=== PATIENT | male | born 1955 ===

== ENCOUNTER 2018-01-08 08:16 | Inpatient (IN) | payer SELFPAY ==
[2018-01-08 08:28] VITALS: BMI 28.1
--- NOTE | 2018-01-08 08:45 | ED PDOC ---
Arrival/HPI - General Time Seen by Provider: 01/08/18 08:38 Historian: Patient - History of Present Illness Narrative History of Present Illness (Text): 01/08/18 08:30 62 year old male, whose PMH includes 3 coronary stents and pacemaker, who presents to the emergency department complaining of chest pain asscoiated with shortness of breath since this morning. Patient reports he woke up with the pain and also complaints of swollen feet. Patient denies any fever, cough, headache, nausea, vomiting, diarrhea, abdominal pain, or other complaints. Time/Duration: Prior to Arrival Symptom Onset: Sudden Symptom Course: Unchanged Activities at Onset: Rest Context: Home Past Medical History - Provider Review Nursing Documentation Reviewed: Yes Family/Social History - Physician Review Nursing Documentation Reviewed: Yes Family/Social History: Unknown Family HX Allergies/Home Meds Allergies/Adverse Reactions: Allergies No Known Allergies Allergy (Verified 01/08/18 08:28) Home Medications: Home Meds Medication Instructions Recorded Confirmed Unobtainable 01/08/18 01/08/18 Review of Systems - Review of Systems Constitutional: absent: Fevers ENT: absent: Sinus Congestion Respiratory: SOB. absent: Cough Cardiovascular: Chest Pain Gastrointestinal: absent: Abdominal Pain Genitourinary Male: absent: Dysuria Musculoskeletal: absent: Back Pain Skin: absent: Rash Neurological: absent: Headache, Dizziness Endocrine: absent: Diaphoresis Physical Exam Vital Signs Reviewed: Yes Vital Signs Temp Pulse Pulse Resp BP BP Pulse Ox 01/08/18 11:49 81 20 101/82 97 01/08/18 11:04 95/71 L 01/08/18 08:59 79 94/71 L 01/08/18 08:40 97.6 F Appearance: Positive for: Non-Toxic, Unkept (dishevelled ) Pain Distress: None Mental Status: Positive for: Alert and Oriented X 3 - Systems Exam Head: Present: Atraumatic, Normocephalic Pupils: Present: PERRL Extroacular Muscles: Present: EOMI Conjunctiva: Present: Normal Respiratory/Chest: Present: Clear to Auscultation, Tachypneic, Other (pacemaker on left side of chest). No: Respiratory Distress, Accessory Muscle Use Cardiovascular: Present: Regular Rate and Rhythm, Normal S1, S2. No: Murmurs Abdomen: Present: Normal Bowel Sounds. No: Tenderness, Distention, Peritoneal Signs, Rebound, Guarding Neurological: Present: GCS=15, CN II-XII Intact, Speech Normal Skin: Present: Warm, Dry, Normal Color. No: Rashes Psychiatric: Present: Alert, Oriented x 3, Normal Insight, Normal Concentration Medical Decision Making ED Course and Treatment: 01/08/18 Impression: 62 year old male who appears dishevelled and is tachypneic complaining of shortness of breath and chest pain since this morning Plan: -- EKG -- Labs -- Aspirin -- Urinalysis -- Reassess and disposition Progress Notes: 01/08/18 EKG: Ordered, reviewed, and independently interpreted the EKG. Rate : BPM Rhythm : 82 NSR Interpretation : Left Clayton Deviation. Widened QRS prolonged QTC 497. No ST elevation. T-wave inversion lead I and aVL Patient denies history of CHF but has elevated BNP and cardiomegaly, and has a defibrillator. 40mg lasix ivp given for fluid overload. Will admit for further management. 01/08/18 11:[address] Garcia, hospitalist chronometer assembler, who agrees with emergency department management and will admit patient under care. - Lab Interpretations Lab Results: 01/08/18 08:44 01/08/18 08:44 Lab Results 01/08/18 08:44: Sodium 137, Potassium 4.8, Chloride 98, Carbon Dioxide 25, Anion Gap 19, BUN 55 H, Creatinine 1.8 H, Est GFR ( Amer) 47, Est GFR ( Non-Af Amer) 39, Random Glucose 98, Calcium 8.9, Magnesium 2.4 H, Total Bilirubin 3.2 H, AST 82 H, ALT 96 H, Alkaline Phosphatase 149 H, Lactate Dehydrogenase 820 H, Total Creatine Kinase 134, Troponin I 0.03, NT-Pro-B Natriuret Pep 4080 H, Total Protein 7.4, Albumin 3.9, Globulin 3.5, Albumin/ Globulin Ratio 1.1 01/08/18 08:44: WBC 10.6, RBC 5.41, Hgb 14.9, Hct 45.1, MCV 83.4, MCH 27.5, MCHC 33.0, RDW 19.7 H, Plt Count 211, MPV 9.4, Gran % 56.4, Lymph % (Auto) 30.0 , [place] % (Auto) 11.6 H, Eos % (Auto) 1.8, Baso % (Auto) 0.2, Gran # 5.99, Lymph # (Auto) 3.2, [place] # (Auto) 1.2 H, Eos # (Auto) 0.2, Baso # (Auto) 0.02 01/08/18 08:30: TSH 3rd Generation 2.63 I have reviewed the lab results: Yes - RAD Interpretation Radiology Orders: 01/08/18 10:00 CXR [CHEST PORTABLE] [RAD] Stat Receiving Weigher: Radiologist - EKG Interpretation Interpreted by ED Physician: Yes Type: 12 lead EKG - Medication Orders Current Medication Orders: Albuterol/Ipratropium (Duoneb 3 Mg/0.5 Mg (3 Ml) Ud) 3 ml IH [id number] [facility] Last Admin: 01/08/18 13:43 Dose: 3 ml Heparin Sodium (Porcine) (Heparin) 5,000 units SC Q12 SHANELL PRN Reason: Protocol Last Admin: 01/08/18 14:24 Dose: 5,000 units Subcutaneous Administrations Document 01/08/18 14:24 EUSTL (Rec: 01/08/18 14:24 EUSTL [id number]) Charges for Administration # of Subcutaneous Administrations 1 Pantoprazole Sodium (Protonix Inj) 40 mg IVP DAILY [facility] Last Admin: 01/08/18 14:23 Dose: 40 mg IVP Administration Document 01/08/18 14:23 EUSTL (Rec: 01/08/18 14:23 EUSTL [id number]) Charges for Administration # of IVP Administrations 1 Discontinued Medications Aspirin (Aspirin) 325 mg PO STAT STA Stop: 01/08/18 08:41 Last Admin: 01/08/18 09:49 Dose: 325 mg Furosemide (Lasix) 20 mg IVP STAT STA Stop: 01/08/18 10:52 Last Admin: 01/08/18 11:04 Dose: 20 mg MAR Blood Pressure Document 01/08/18 11:04 MR (Rec: 01/08/18 11:05 MR [id number]) Blood Pressure Blood Pressure (100/60-150/90) 95/71 IVP Administration Document 01/08/18 11:04 MR (Rec: 01/08/18 11:05 MR [id number]) Charges for Administration # of IVP Administrations 1 - Scribe Statement The provider has reviewed the documentation as recorded by the Makayla Aguilar Provider Zache Attestation: All medical record entries made by the Scribe were at my direction and personally dictated by me. I have reviewed the chart and agree that the record accurately reflects my personal performance of the history, physical exam, medical decision making, and the department course for this patient. I have also personally directed, reviewed, and agree with the discharge instructions and disposition. Disposition/Present on Arrival - Present on Arrival Any Indicators Present on Arrival: No History of DVT/PE: No History of Uncontrolled Diabetes: No Urinary Catheter: No History of Decub. Ulcer: No - Disposition Have Diagnosis and Disposition been Completed?: Yes Diagnosis: Shortness of breath Disposition: HOSPITALIZED Disposition Time: 11:03 Patient Plan: Admission Patient Problems: Current Active Problems Problem Status Onset Shortness of breath Acute Condition: STABLE
[2018-01-08 09:04] LABS: BASO # 0.02 K/mm3 (0.0-2.0); BASO % 0.2 % (0.0-3.0); EOS # 0.2 (0.0-0.7); EOS % 1.8 % (1.5-5.0); GRAN # 5.99 (1.4-6.5); GRAN % 56.4 % (50.0-68.0); HEMOGLOBIN 14.9 g/dL (14.0-18.0); LYMPH # 3.2 (1.2-3.4); MEAN CELL VOLUME 83.4 fl (80.0-105.0); MEAN CORPUSCULAR HEMOGLOBIN 27.5 pg (25.0-35.0); MEAN PLATELET VOLUME 9.4 fl (7.0-11.0); MONO # 1.2 (0.1-0.6); MONO % 11.6 % (1.0-6.0); RBC 5.41 10^6/uL (3.5-6.1); RED CELL DISTRIBUTION WIDTH 19.7 % (11.5-14.5); WHITE BLOOD COUNT 10.6 10^3/ul (4.5-11.0)
[2018-01-08 09:09] LABS: ALB/GLOB RATIO 1.1 (1.1-1.8); ALBUMIN 3.9 g/dL (3.0-4.8); CALCIUM 8.9 mg/dL (8.4-10.5)
[2018-01-08 09:21] LABS: TROPONIN I 0.03 ng/mL
--- NOTE | 2018-01-08 10:49 | RAD ---
Date of service: 01/08/2018 HISTORY: chest pain COMPARISON: No prior. FINDINGS: LUNGS: No active pulmonary disease. PLEURA: No significant pleural effusion identified, no pneumothorax apparent. CARDIOVASCULAR: Moderate cardiomegaly OSSEOUS STRUCTURES: No significant abnormalities. VISUALIZED UPPER ABDOMEN: Normal. OTHER FINDINGS: Pacemaker IMPRESSION: No active disease.
--- NOTE | 2018-01-08 13:37 | CP.PCM.HP ---
<Braxton Valerio - Last Filed: 01/08/18 16:18> History of Present Illness - History of Present Illness History of Present Illness: Braxton Valerio, PGY-1 History and Physical for Hospitalist Service CC: Shortness of Breath and Chest pain HPI: Mr. Alejandra is a 62 year old man with a past medical history of CAD (2 stents after an VT in 2013 and 1 stent in 2017 in [place]), AICD placement (last echocardiogram a few months ago per patient in [place] unknown EF), HTN, HLD who presented with complaints of chest pain and shortness of breath this morning. Patient shares that he was awoken with left sided chest pain that was worse with cough, rated at a 5/10. Patient states the pain radiated down his L arm and caught his breath. Patient admits to some weakness, leg swelling and imbalance while walking. Patient denies fevers, chills, nausea, vomiting, and diaphoresis at that time. Patient called 911 and was brought in by ambulance. Patient denies abdominal pain, sick contacts, headaches, recent travel, changes in weight, and bruising. Currently, patient denies chest pain, shortness of breath, but does complain of nausea and hunger. PMHx: as above PSHx: denies Allergies NKDA Social Hx: Former smoker. Denies ETOH and substance abuse. Visiting a friend locally but lives in [place]. Originally from [place]. 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 Fam Hx: brother diagnosed with heart disease at age 70 Medications: Digoxin 0.125 every day, furosemide 40 po BID, Plavix 75 mg every day, Spironolactone 25 half tab once a day, Carvedilol 6.25 mg BID, Losartan 25 mg, Atorvastatin 80, Aspirin 81 mg PMD: none Livestock Breeder: Dr. Paulo Yen ([place]) Pharmacy: [facility] in [place], [place] Present on Admission - Present on Admission Any Indicators Present on Admission: No Review of Systems - Review of Systems All systems: reviewed and no additional remarkable complaints except (as described in HPI.) Past Patient History - Past Social History Smoking Status: Former Smoker - CARDIAC Hx Cardiac Disorders: Yes Hx Heart Attack: Yes Hx Hypercholesterolemia: Yes Hx Hypertension: Yes Hx Pacemaker: Yes Hx Peripheral Edema: Yes - PULMONARY Hx Respiratory Disorders: No - NEUROLOGICAL Hx Neurological Disorder: No - HEENT Hx HEENT Problems: No - RENAL Hx Chronic Kidney Disease: No - ENDOCRINE/METABOLIC Hx Endocrine Disorders: No - HEMATOLOGICAL/ONCOLOGICAL Hx Blood Disorders: No - INTEGUMENTARY Hx Dermatological Problems: No - MUSCULOSKELETAL/RHEUMATOLOGICAL Hx Musculoskeletal Disorders: No - GASTROINTESTINAL Hx Gastrointestinal Disorders: No - GENITOURINARY/GYNECOLOGICAL Hx Genitourinary Disorders: No - PSYCHIATRIC Hx Psychophysiologic Disorder: No Hx Substance Use: No - SURGICAL HISTORY Hx Surgeries: Yes Hx Cardiac Catheterization: Yes Hx Coronary Stent: Yes (x3) Meds Allergies/Adverse Reactions: Allergies Allergy/AdvReac Type Severity Reaction Status Date / Time No Known Allergies Allergy Verified 01/08/18 08:28 Physical Exam - Constitutional Appears: Well, Non-toxic, No Acute Distress - Head Exam Head Exam: ATRAUMATIC, NORMAL INSPECTION, NORMOCEPHALIC - Eye Exam Eye Exam: EOMI, Normal appearance Pupil Exam: PERRL - ENT Exam ENT Exam: Mucous Membranes Moist - Neck Exam Neck exam: Positive for: Normal Inspection - Respiratory Exam Respiratory Exam: Clear to Auscultation Bilateral, NORMAL BREATHING PATTERN. absent: Rales, Rhonchi, Wheezes - Cardiovascular Exam Cardiovascular Exam: RRR, +S1, +S2 Additional comments: Subcutaneous pacemaker in upper L chest. Healed scar - GI/Abdominal Exam GI & Abdominal Exam: Normal Bowel Sounds. absent: Firm, Guarding, Rebound, Tenderness Additional comments: bloating - Extremities Exam Extremities exam: Positive for: pedal edema (1+ edema bilaterally). Negative for: calf tenderness, joint swelling - Neurological Exam Neurological exam: Alert, Oriented x3 - Psychiatric Exam Psychiatric exam: Anxious - Skin Skin Exam: Dry, Intact, Normal Color, Warm Results - Vital Signs Recent Vital Signs: Last Vital Signs Temp 97.6 F 01/08/18 08:40 Pulse 81 01/08/18 11:49 Resp 20 01/08/18 11:49 BP 101/82 01/08/18 11:49 Pulse Ox 97 01/08/18 11:49 - Labs Result Diagrams: 01/08/18 08:44 01/08/18 08:44 Assessment & Plan - Assessment and Plan (Free Text) Assessment: Mr. Alejandra is a 62 year old man with a past medical history of CAD (2 stents after an VT in 2012 and 1 stent in 2016 in [place]), AICD placement (last echocardiogram a few months ago per patient in [facility] showed "nothing wrong" - unknown EF), HTN, HLD who presented with complaints of chest pain and shortness of breath this morning. Patient received ASA 325 mg and lasix 20 IVP in the ED. EKG performed shows T wave inversions in lateral leads and CXR showed no active disease. Chest pain r/o ACS - extensive cardiac history - AICD, CAD and VT with 3 stents, most recent in 2017 - EKG in ED shows NSR @ 82, no ST changes, some lateral wall T wave inversions - currently asymptomatic - trend trops. 1st is 0.03 - will get records from [facility] and [facility] regarding - will continue dual antiplatelet therapy, carvedilol, losartan with holding parameters - Losartan held due to LFTs (AST/ALT 82/96) - f/u TSH - f/u AM labs Ischemic cardiomyopathy- HFrEF exacerbation BNP 4080 f/u echo order for current EF AICD in place patient on 20 IV Lasix BID will monitor fluid status daily weights and I and Os Mg elevated 2.4 will trend Total bilirubin 3.2 f/u direct bili LAURIE BUN/Cr 55/1.8 likely secondary to heart failure exacerbation - f/u urine NA, urine Cr, urine osmol, urea - f/u UA Liver Function Tests congested liver likely secondary to heart failure f/u coag studies and conjugated bilirubin f/u Hepatitis shawn HLD f/u a1c Prophylaxis: Heparin 5000 TID, Protonix 40 IV Patient seen, case reviewed, and plan agreed upon with Dr. Garcia. Braxton Valerio, PGY-1 <Max Garcia - Last Filed: 01/09/18 15:49> Results - Vital Signs Recent Vital Signs: Last Vital Signs Temp 97.9 F 01/09/18 12:00 Pulse 85 01/09/18 12:00 Resp 20 01/09/18 12:00 BP 101/78 01/09/18 12:00 Pulse Ox 100 01/09/18 06:00 - Labs Result Diagrams: 01/09/18 06:00 01/09/18 06:00 Labs: Laboratory Results - last 24 hr 01/08/18 01/08/18 01/08/18 17:03 17:03 17:03 WBC RBC Hgb Hct MCV MCH MCHC RDW Plt Count MPV Gran % Lymph % (Auto) [place] % (Auto) Eos % (Auto) Baso % (Auto) Gran # Lymph # (Auto) [place] # (Auto) Eos # (Auto) Baso # (Auto) PT INR APTT Sodium Potassium Chloride Carbon Dioxide Anion Gap BUN Creatinine Est GFR ( Amer) Est GFR (Non-Af Amer) Random Glucose Calcium Total Bilirubin AST ALT Alkaline Phosphatase Troponin I Total Protein Albumin Globulin Albumin/Globulin Ratio Triglycerides Cholesterol LDL Cholesterol Direct HDL Cholesterol Urine Color Yellow Urine Appearance Clear Urine pH 6.5 Ur Specific [place] <= 1.005 Urine Protein Negative Urine Glucose (UA) Negative Urine Ketones Negative Urine Blood Negative Urine Nitrate Negative Urine Bilirubin Negative Urine Urobilinogen >=8.0 Ur Leukocyte Esterase Negative Urine Osmolality 327 Ur Random Creatinine 28 Ur Random Sodium 54 Ur Random Urea Nitrogn 451 Hepatitis A IgM Ab Hep Bs Antigen Hep B Core IgM Ab Hepatitis C Antibody 01/08/18 01/08/18 01/09/18 20:05 20:05 06:00 WBC 9.3 RBC 5.38 Hgb 14.8 Hct 45.3 MCV 84.2 MCH 27.5 MCHC 32.7 RDW 19.9 H Plt Count 234 MPV 9.5 Gran % 57.4 Lymph % (Auto) 30.1 [place] % (Auto) 10.4 H Eos % (Auto) 1.7 Baso % (Auto) 0.4 Gran # 5.32 Lymph # (Auto) 2.8 [place] # (Auto) 1.0 H Eos # (Auto) 0.2 Baso # (Auto) 0.04 PT INR APTT Sodium Potassium Chloride Carbon Dioxide Anion Gap BUN Creatinine Est GFR ( Amer) Est GFR (Non-Af Amer) Random Glucose Calcium Total Bilirubin AST ALT Alkaline Phosphatase Troponin I 0.03 Total Protein Albumin Globulin Albumin/Globulin Ratio Triglycerides Cholesterol LDL Cholesterol Direct HDL Cholesterol Urine Color Urine Appearance Urine pH Ur Specific [place] Urine Protein Urine Glucose (UA) Urine Ketones Urine Blood Urine Nitrate Urine Bilirubin Urine Urobilinogen Ur Leukocyte Esterase Urine Osmolality Ur Random Creatinine Ur Random Sodium Ur Random Urea Nitrogn Hepatitis A IgM Ab Negative Hep Bs Antigen Negative Hep B Core IgM Ab Negative Hepatitis C Antibody Negative 01/09/18 01/09/18 06:00 06:00 WBC RBC Hgb Hct MCV MCH MCHC RDW Plt Count MPV Gran % Lymph % (Auto) [place] % (Auto) Eos % (Auto) Baso % (Auto) Gran # Lymph # (Auto) [place] # (Auto) Eos # (Auto) Baso # (Auto) PT 17.0 H INR 1.47 H APTT 36.7 H Sodium 137 Potassium 4.9 Chloride 96 L Carbon Dioxide 30 Anion Gap 16 BUN 55 H Creatinine 1.6 H Est GFR ( Amer) 53 Est GFR (Non-Af Amer) 44 Random Glucose 143 H Calcium 8.8 Total Bilirubin 3.5 H AST 102 H D ALT 88 H Alkaline Phosphatase 116 Troponin I Total Protein 7.5 Albumin 3.8 Globulin 3.7 Albumin/Globulin Ratio 1.0 L Triglycerides 85 Cholesterol 104 L LDL Cholesterol Direct 70 HDL Cholesterol 15 L Urine Color Urine Appearance Urine pH Ur Specific [place] Urine Protein Urine Glucose (UA) Urine Ketones Urine Blood Urine Nitrate Urine Bilirubin Urine Urobilinogen Ur Leukocyte Esterase Urine Osmolality Ur Random Creatinine Ur Random Sodium Ur Random Urea Nitrogn Hepatitis A IgM Ab Hep Bs Antigen Hep B Core IgM Ab Hepatitis C Antibody Attending/Attestation - Attestation I have personally seen and examined this patient.: Yes I have fully participated in the care of the patient.: Yes I have reviewed all pertinent clinical information: Yes Notes (Text): 01/09/18 15:44 Medical record note made by the resident after discussion with my direction and input after the patient was personally seen and examined by me. I have reviewed the chart and agree that the record accurately reflects by personal performance of the history, physical exam, data review, and medical decision-making, in the course for the patient. I have also personally directed the plan of care. 62 year old male with PMH of ischemic cardiomyopathy, SP VT and multiple cardiac stent, CHF with systolic dysfunction EF is unkown,SP , AICD placement , HTN, HLD is admitted with chest pain and acute on chronic systolic CHF exacerbation.We will monitor patient in telemetry, we will get serial troponin, we will start patient on IV lasix, will continue coreg and ARB.We will follow up BUN and creatinin.We will also get 2D and will also get cardiology evaluation. Management plan was discussed in detail with patient. Education was provided.
[2018-01-08] MEDS: Albuterol-Ipratrop 3 mg / 0.5 (3 ml) UD IH SCH ×2 (13:43→20:55)
[2018-01-08 14:37] LABS: BILIRUBIN,DIRECT 1.8 mg/dL (0.0-0.4)
[2018-01-08 14:49] LABS: TROPONIN I 0.03 ng/mL
[2018-01-08] MEDS ORDERED: Pneumococcal 23-Valent Vaccine IM ONE (16:03)
--- NOTE | 2018-01-08 17:26 | CARD ---
APPROVED REPORT Date of service: 01/08/2018 EKG Measurement Heart [id number] <Conclusion> Sinus rhythm with occasional premature ventricular complexes Left axis deviation Nonspecific intraventricular block Cannot rule out Septal infarct, age undetermined T wave abnormality, consider lateral ischemia Abnormal ECG
[2018-01-08 17:31] LABS: PH,URINE 6.5 (4.7-8.0); URINE BILIRUBIN NEGATIVE (NEGATIVE); URINE BLOOD NEGATIVE (NEGATIVE); URINE GLUCOSE (UA) NEGATIVE (NEGATIVE); URINE LEUKOCYTE ESTERASE NEGATIVE Leu/uL (NEGATIVE); URINE PROTEIN NEGATIVE mg/dL (<30 mg/dL); URINE UROBILINOGEN >=8.0 E.U./dL (<1 E.U./dL)
[2018-01-08 17:32] LABS: URINE APPEARANCE CLEAR (CLEAR); URINE COLOR YELLOW (YELLOW)
--- NOTE | 2018-01-08 17:32 | CARD ---
APPROVED REPORT Date of service: 01/08/2018 EKG Measurement Heart [id number] <Conclusion> Normal sinus rhythm Possible Left atrial enlargement Left axis deviation Nonspecific intraventricular block Lateral infarct, age undetermined Abnormal ECG
[2018-01-08 18:02] LABS: CREATININE,RANDOM URINE 28 mg/dL
[2018-01-09] MEDS: Albuterol-Ipratrop 3 mg / 0.5 (3 ml) UD IH SCH ×4 (03:05→20:13)
[2018-01-09 07:08] LABS: BASO # 0.04 K/mm3 (0.0-2.0); BASO % 0.4 % (0.0-3.0); EOS # 0.2 (0.0-0.7); EOS % 1.7 % (1.5-5.0); GRAN # 5.32 (1.4-6.5); GRAN % 57.4 % (50.0-68.0); HEMOGLOBIN 14.8 g/dL (14.0-18.0); LYMPH # 2.8 (1.2-3.4); LYMPH % 30.1 % (22.0-35.0); MEAN CELL VOLUME 84.2 fl (80.0-105.0); MEAN CORPUSCULAR HEMOGLOBIN 27.5 pg (25.0-35.0); MEAN CORPUSCULAR HGB CONC 32.7 g/dl (31.0-37.0); MEAN PLATELET VOLUME 9.5 fl (7.0-11.0); MONO % 10.4 % (1.0-6.0); RBC 5.38 10^6/uL (3.5-6.1); RED CELL DISTRIBUTION WIDTH 19.9 % (11.5-14.5); WHITE BLOOD COUNT 9.3 10^3/ul (4.5-11.0)
[2018-01-09 07:27] LABS: INR 1.47 (0.93-1.08); PARTIAL THROMBOPLASTIN TIME 36.7 Seconds (25.1-36.5)
[2018-01-09 07:34] LABS: ALBUMIN 3.8 g/dL (3.0-4.8); CALCIUM 8.8 mg/dL (8.4-10.5)
--- NOTE | 2018-01-09 11:23 | CP.PCM.PN ---
<Patel Iglesias - Last Filed: 01/09/18 11:19> Subjective - Date & Time of Evaluation Date of Evaluation: 01/09/18 Time of Evaluation: 09:20 - Subjective Subjective: Patel Iglesias DO PGY-1, Manager [employer] Medicine Progress Note Pt seen and examined at bedside. States shortness of breath has improved a little. States he has abdominal pain only when he coughs. Reports decreased urine output. Otherwise no acute events reported overnight. Objective - Vital Signs/Intake and Output Vital Signs (last 24 hours): Temp Pulse Resp BP Pulse Ox 98.1 F 83 16 106/76 100 01/09/18 06:00 01/09/18 10:32 01/09/18 06:00 01/09/18 10:33 01/09/18 06:00 Intake and Output: 01/09/18 01/09/18 06:59 18:59 Intake Total 1244 Output Total 1025 Balance 219 - Medications Medications: Current Medications Albuterol/Ipratropium (Duoneb 3 Mg/0.5 Mg (3 Ml) Ud) 3 ml IH [id number] [facility] Last Admin: 01/09/18 07:30 Dose: 3 ml Aspirin (Ecotrin) 81 mg PO DAILY [facility] Last Admin: 01/09/18 10:33 Dose: 81 mg Carvedilol (Coreg) 6.25 mg PO BID [facility] Last Admin: 01/09/18 10:32 Dose: 6.25 mg Clopidogrel Bisulfate (Plavix) 75 mg PO DAILY [facility] Last Admin: 01/09/18 10:33 Dose: 75 mg Furosemide (Lasix) 40 mg IVP Q12 [facility] Last Admin: 01/09/18 10:33 Dose: 40 mg Heparin Sodium (Porcine) (Heparin) 5,000 units SC Q8 [facility] PRN Reason: Protocol Last Admin: 01/09/18 06:37 Dose: 5,000 units Losartan Potassium (Cozaar) 25 mg PO DAILY [facility] Last Admin: 01/09/18 10:31 Dose: 25 mg Pantoprazole Sodium (Protonix Inj) 40 mg IVP DAILY [facility] Last Admin: 01/09/18 10:34 Dose: 40 mg - Labs Labs: 01/09/18 06:00 01/09/18 06:00 PT 17.0 SECONDS (9.4-12.5) H 01/09/18 06:00 INR 1.47 (0.93-1.08) H 01/09/18 06:00 APTT 36.7 Seconds (25.1-36.5) H 01/09/18 06:00 - Constitutional Appears: Non-toxic, No Acute Distress - Head Exam Head Exam: ATRAUMATIC, NORMAL INSPECTION, NORMOCEPHALIC - Eye Exam Eye Exam: EOMI, Normal appearance, PERRL - ENT Exam ENT Exam: Mucous Membranes Moist, Normal Oropharynx - Neck Exam Neck Exam: Full ROM, Normal Inspection - Respiratory Exam Respiratory Exam: Clear to Ausculation Bilateral, NORMAL BREATHING PATTERN Additional comments: Trace crackles heard in all lung deal - Cardiovascular Exam Cardiovascular Exam: REGULAR RHYTHM, +S1, +S2 - GI/Abdominal Exam GI & Abdominal Exam: Soft, Normal Bowel Sounds - Extremities Exam Extremities Exam: Full ROM, Normal Capillary Refill, Normal Inspection Additional comments: 1+ pedal edema b/l - Neurological Exam Neurological Exam: Alert, Awake, Oriented x3 - Psychiatric Exam Psychiatric exam: Normal Affect, Normal Mood - Skin Skin Exam: Dry, Intact, Normal Color, Warm Assessment and Plan - Assessment and Plan (Free Text) Assessment: 62 year old man with a past medical history of CAD (2 stents after an NE in 2012 and 1 stent in 2017 in [place]), AICD placement (last echocardiogram a few months ago per patient in [place] showed "nothing wrong"- unknown EF), HTN , HLD who presented with complaints of chest pain and shortness of breath on morning of admission. Patient received ASA 325 mg and lasix 20 IVP in the ED. EKG demonstrated T wave inversions in lateral leads and CXR showed no active disease. Plan: Chest pain r/o ACS Extensive cardiac history - AICD, CAD and NE with 3 stents, most recent in 2017 EKG in ED shows NSR @ 82, no ST changes, some lateral wall T wave inversions; repeat EKG demonstrated no changes from prior study Currently asymptomatic Troponins neg x3 C/w dual antiplatelet therapy, carvedilol, losartan with holding parameters Losartan held due to LFTs on admission, will continue to trend TSH wnl Lipid panel wnl A1c pending Cardio consulted, recs appreciated Ischemic cardiomyopathy- HFrEF exacerbation BNP 4080 on admission F/u echo results for current EF AICD in place Increased lasix to 40 mg IV bid due to pt's decreased urine output, will monitor clinical response Cr 1.8 => 1.6 this am Daily weights, strict I's/O's Mg elevated 2.4 on admission, will trend Total bilirubin 3.2, direct bili 1.8, pt asymptomatic and not c/o RUQ pain at this time LAURIE BUN/Cr 55/1.8 on admission Likely secondary to heart failure exacerbation Urine Na 54, Urine Cr 28, Urine osmol 327, Urea 451 U/a negative for UTI Elevated Liver Function Tests Congested liver likely secondary to heart failure f/u coag studies; direct bili 1.8 Hepatitis panel pending HLD Lipid panel wnl Prophylaxis: Heparin 5000 TID, Protonix 40 IV Pt seen, examined with, and plan discussed with Dr. Garcia, attending. Patel Iglesias DO PGY-1, Manager [employer] Pager #[phone] <Max Garcia - Last Filed: 01/09/18 15:54> Objective - Vital Signs/Intake and Output Vital Signs (last 24 hours): Temp Pulse Resp BP Pulse Ox 97.9 F 85 20 101/78 100 01/09/18 12:00 01/09/18 12:00 01/09/18 12:00 01/09/18 12:00 01/09/18 06:00 Intake and Output: 01/09/18 01/09/18 06:59 18:59 Intake Total 1244 Output Total 1025 Balance 219 - Medications Medications: Current Medications Albuterol/Ipratropium (Duoneb 3 Mg/0.5 Mg (3 Ml) Ud) 3 ml IH [id number] [facility] Last Admin: 01/09/18 13:45 Dose: 3 ml Aspirin (Ecotrin) 81 mg PO DAILY [facility] Last Admin: 01/09/18 10:33 Dose: 81 mg Carvedilol (Coreg) 6.25 mg PO BID [facility] Last Admin: 01/09/18 10:32 Dose: 6.25 mg Clopidogrel Bisulfate (Plavix) 75 mg PO DAILY [facility] Last Admin: 01/09/18 10:33 Dose: 75 mg Furosemide (Lasix) 40 mg IVP Q12 [facility] Last Admin: 01/09/18 10:33 Dose: 40 mg Heparin Sodium (Porcine) (Heparin) 5,000 units SC Q8 [facility] PRN Reason: Protocol Last Admin: 01/09/18 06:37 Dose: 5,000 units Losartan Potassium (Cozaar) 25 mg PO DAILY [facility] Last Admin: 01/09/18 10:31 Dose: 25 mg Pantoprazole Sodium (Protonix Inj) 40 mg IVP DAILY [facility] Last Admin: 01/09/18 10:34 Dose: 40 mg - Labs Labs: 01/09/18 06:00 01/09/18 06:00 PT 17.0 SECONDS (9.4-12.5) H 01/09/18 06:00 INR 1.47 (0.93-1.08) H 01/09/18 06:00 APTT 36.7 Seconds (25.1-36.5) H 01/09/18 06:00 Attending/Attestation - Attestation I have personally seen and examined this patient.: Yes I have fully participated in the care of the patient.: Yes I have reviewed all pertinent clinical information, including history, physical exam and plan: Yes Notes (Text): 01/09/18 15:52 Medical record note made by the resident after discussion with my direction and input after the patient was personally seen and examined by me. I have reviewed the chart and agree that the record accurately reflects by personal performance of the history, physical exam, data review, and medical decision-making, in the course for the patient. I have also personally directed the plan of care. 62 year old male with PMH of ischemic cardiomyopathy, SP NE and multiple cardiac stent, CHF with systolic dysfunction EF is unkown,SP , AICD placement , HTN, HLD was admitted with chest pain and acute on chronic systolic CHF exacerbation.Serial troponins are normal.Patient is still having bilateral basal crackle.We will increase dose of lasix to 40 mg IV BID.Creatinin is improved to 1.5. Management plan was discussed in detail with patient. Education was provided.
[2018-01-09 11:25] LABS: HEPATITIS B SURFACE AG Negative (NEGATIVE)
[2018-01-09 11:30] LABS: HEPATITIS A IGM NEGATIVE (NEGATIVE); HEPATITIS B CORE AB NEGATIVE (NEGATIVE)
[2018-01-09 11:42] LABS: HEPATITIS C ANTIBODY NEGATIVE (NEGATIVE)
--- NOTE | 2018-01-09 19:19 | CARD ---
APPROVED REPORT Date of service: 01/09/2018 EXAM: Two-dimensional and M-mode echocardiogram with Doppler and color Doppler. INDICATION Dyspnea Congestive Heart Failure 2D DIMENSIONS Left Atrium (2D)4.9 (1.6-4.0cm)IVSd0.7 (0.7-1.1cm) LVDd6.8 (3.9-5.9cm)LVOT Diameter2.0 (1.8-2.4cm) PWd1.0 (0.7-1.1cm)LVDs6.4 (2.5-4.0cm) FS (%) 6.0 %LVEF (%)12.9 (>50%) M-Mode DIMENSIONS Aortic Cusp Exc.0.50 (1.5-2.0cm) Aortic Valve AoV Peak Rmgfspkw014.0cm/sAoV VTI44.2cmAO Peak GR.20mmHg LVOT Peak Djbkrqkk77.4cm/sLVOT VTI7.54cmAO Mean GR.13mmHg CARLOS (VMAX)0.75is4NML (VTI)0.94vi8FV P 1/2 [id number] Mitral Valve MV E Dynwksun82.1cm/sMV A Kiajvqlx15.0cm/sE/A ratio2.0 TDI Lateral E' Peak V13.00cm/sMedial E' Peak V3.51cm/sE/Lateral E'7.5 E/Medial E'27.9 Pulmonary Valve PV Peak Qvtovpbq51.5cm/sPV Peak Grad.2mmHg Tricuspid Valve TR Peak Xbbwqbvd752ab/sRAP FKKAFRYO7ouDiMP Peak Gr.36mmHg [id number] LEFT VENTRICLE The Left Ventricle is severely dilated. There is normal left ventricular wall thickness. The systolic function is severely impaired. Akinetic septum and [place] Transmitral Doppler flow pattern is Grade II-pseudonormal filling dynamics. RIGHT VENTRICLE The right ventricle is moderately dilated. There is normal right ventricular wall thickness. RV Systolic function is severely reduced. ATRIA The left atrium is mildly dilated. The right atrium is mildly dilated. AORTIC VALVE The aortic valve is moderately to severely calcified. There is mild aortic regurgitation. There is severe valvular aortic stenosis. MITRAL VALVE The mitral valve is mildly thickened. Mitral regurgitation is mild. TRICUSPID VALVE The tricuspid valve is normal in structure. There is mild tricuspid regurgitation. There is mild pulmonary hypertension. GREAT VESSELS The aortic root is normal in size. The IVC is plethoric. PERICARDIAL EFFUSION There is no pericardial effusion. <Conclusion> The Left Ventricle is severely dilated. There is normal left ventricular wall thickness. The systolic function is severely impaired. Akinetic septum and [place] Transmitral Doppler flow pattern is Grade II-pseudonormal filling dynamics. RV Systolic function is severely reduced. The aortic valve is moderately to severely calcified. There is mild aortic regurgitation. There is severe valvular aortic stenosis. Mitral regurgitation is mild. There is mild tricuspid regurgitation. There is mild pulmonary hypertension.
--- NOTE | 2018-01-09 22:15 | US ---
HISTORY: Leg pain and swelling. Evaluate for DVT PHYSICIAN(S): Mookie Henry MD. TECHNIQUE: Duplex sonography and color-flow Doppler with graded compression were used to evaluate the deep venous systems of both lower extremities. FINDINGS: The visualized deep venous systems of both lower extremities are sonographically normal and compressible. Normal wave forms and augmentation are seen. There is no sonographic evidence for deep venous thrombosis in the visualized segments of both lower extremities. IMPRESSION: No sonographic evidence for deep venous thrombosis in the visualized segments of both lower extremities.
--- NOTE | 2018-01-09 23:01 | CON ---
DATE: 01/09/2018 CARDIOLOGY CONSULTATION REASON FOR CONSULTATION: Exacerbation of congestive heart failure. HISTORY OF PRESENT ILLNESS: The patient is a 62-year-old [place] male who is a former smoker, has ischemic cardiomyopathy. The patient is being followed by sea foam kiss maker at [facility]. He has a total of three coronary stents in the past, most recent one was more than one year ago. The patient has an ICD placed four years ago. The patient reported that ICD discharged three to four weeks ago and was told by his chuck splitter this is an expected event. The patient was not hospitalized for that. The patient did experience syncopal episode prior to his ICD discharge. The patient lives in [place] and he had been to visit his family in [place] when he was brought to the emergency room because of worsening leg swelling as well as shortness of breath. The patient did report some chest discomfort, but could not characterize it. The patient was mainly bothered by the worsening shortness of breath. SOCIAL HISTORY: The patient is a former smoker. Denies alcohol abuse. MEDICATIONS: Coreg 6.25 mg twice a day, Cozaar 25 mg once a day, aspirin 81 mg once a day, heparin 5000 units subcutaneous every 8 hours, Lasix 20 mg intravenously twice a day, Plavix 75 mg once a day, Protonix 40 mg intravenously once a day. REVIEW OF SYSTEMS: No nausea or vomiting. No fever or chills. PHYSICAL EXAMINATION GENERAL: The patient is a middle-aged male who does not appear to be in acute distress. VITAL SIGNS: Blood pressure 106/76, heart rate 83, temperature 98.1, and respirations 16. HEENT: Normocephalic. NECK: Jugular venous distentions noted. CHEST: Bibasilar coarse crepitations. HEART: S1 and S2 regular. ABDOMEN: Soft. EXTREMITIES: A 2+ pitting edema. LABORATORY DATA: Hemoglobin and hematocrit 14.8 and 45.3, white count and platelet count are within normal limits. Today's SMA-7; sodium 137, potassium 4.9, chloride , CO2 of 30, glucose 143, BUN 55 and creatinine 1.6. Three sets of troponin are 0.03. INR is 1.47 and PTT is 36.7. Chest x-ray revealed cardiomegaly with moderate CHF. EKG revealed sinus rhythm with occasional PVCs, nonspecific intraventricular conduction delay, cannot to rule out septal infarct of a indeterminate age and Q-wave abnormality consists of lateral ischemia. ASSESSMENT: 1. Exacerbation of congestive heart failure. 2. Ischemic cardiomyopathy. 3. Status post implantable cardioverter defibrillator placement with recent discharge of the implantable cardioverter defibrillators three to four weeks ago. RECOMMENDATIONS: Continue Coreg 6.25 mg twice a day, Cozaar 25 mg once a day, aspirin 81 mg once a day, subcutaneous heparin 5000 units every 8 hours, Lasix 20 mg intravenously twice a day, Plavix 75 mg once a day. Obtain venous Doppler of the lower extremities. I will review the echocardiographic study performed today. Jorge Cooper MD
[2018-01-09] MEDS ORDERED: Sodium Chloride 0.9% 250 ML IV STA ×2 (23:28→23:42)
[2018-01-10] MEDS: Albuterol-Ipratrop 3 mg / 0.5 (3 ml) UD IH SCH ×4 (01:13→19:14)
[2018-01-10] MEDS ORDERED: Sodium Chloride 0.9% 250 ML IV STA (02:07)
--- NOTE | 2018-01-10 02:56 | CP.PCM.PN ---
Subjective - Date & Time of Evaluation Date of Evaluation: 01/10/18 Time of Evaluation: 02:55 - Subjective Subjective: 62 year old male was admitted with chest pain, sob, ACS, renal insufficiency, elevateted LFT's. Has PMH of ME,CAD,coronary stent placement,HTN,HLD, AICD placement. Was seen for low BP of 81/59 came up from 76/48 after receiving 250 cc of fluid challenge.Has no new symptoms. Medical record was reviewed.Echocardiogram shows severe aortic stenosis. GENERAL:Alert,awake, not in distgress. SKIN:No cyanosis. HEENT:Pupils equal. NECK:JVD neg. LUNGS: Bilateral equal air entry, clear. HEART:S1, S2 normal, systolic murmur + ABD:Soft,non tender. EXT:No edema. NEURO:Speech normal. A/P:Hypotension, asymptomatic. Discussed with . Give second bolus of normal saline of 250 CC. Hold betablocker. Continue diuretic lasix for SBP above 90 mmHg. If BP does not come up start on levophed and transfer to CCU. EKG donenow shows minute change of inverted t in V6. Troponin 0.02. Objective - Vital Signs/Intake and Output Vital Signs (last 24 hours): Temp Pulse Resp BP Pulse Ox 98.3 F 73 20 81/59 L 98 01/10/18 01:00 01/10/18 01:44 01/10/18 01:00 01/10/18 01:00 01/10/18 01:00 Intake and Output: 01/09/18 01/10/18 18:59 06:59 Intake Total 540 Output Total 1150 Balance -610 - Medications Medications: Current Medications Albuterol/Ipratropium (Duoneb 3 Mg/0.5 Mg (3 Ml) Ud) 3 ml IH [id number] [facility] Last Admin: 01/10/18 01:13 Dose: 3 ml Aspirin (Ecotrin) 81 mg PO DAILY [facility] Last Admin: 01/09/18 10:33 Dose: 81 mg Carvedilol (Coreg) 6.25 mg PO BID [facility] Last Admin: 01/09/18 18:14 Dose: Not Given Clopidogrel Bisulfate (Plavix) 75 mg PO DAILY [facility] Last Admin: 01/09/18 10:33 Dose: 75 mg Furosemide (Lasix) 40 mg IVP Q12 [facility] Last Admin: 01/09/18 22:18 Dose: Not Given Heparin Sodium (Porcine) (Heparin) 5,000 units SC Q8 [facility] PRN Reason: Protocol Last Admin: 01/09/18 22:17 Dose: 5,000 units Sodium Chloride (Sodium Chloride 0.9%) 250 mls @ 250 mls/hr IV .Q1H STA Stop: 01/10/18 03:06 Last Admin: 01/10/18 02:18 Dose: 250 mls/hr Losartan Potassium (Cozaar) 25 mg PO DAILY [facility] Last Admin: 01/09/18 10:31 Dose: 25 mg Pantoprazole Sodium (Protonix Inj) 40 mg IVP DAILY [facility] Last Admin: 01/09/18 10:34 Dose: 40 mg - Labs Labs: 01/09/18 06:00 01/09/18 06:00 PT 17.0 SECONDS (9.4-12.5) H 01/09/18 06:00 INR 1.47 (0.93-1.08) H 01/09/18 06:00 APTT 36.7 Seconds (25.1-36.5) H 01/09/18 06:00
[2018-01-10] MEDS ORDERED: NOREPINEPHRINE BIT/0.9 % NACL 4 MG/250 ML BAG IV PRN (03:27)
--- NOTE | 2018-01-10 04:24 | CP.PCM.CON ---
<Puja Victor - Last Filed: 01/10/18 06:04> History of Present Illness - History of Present Illness History of Present Illness: ICU Consult Note: Reason for consult: hypotension 62 year old man with a past medical history of CAD (2 stents after an AK in 2012 and 1 stent in 2017 in [place]), AICD placement (last echocardiogram a few months ago per patient in [place] unknown EF), HTN, HLD, initially admitted to [facility] for cp, sob, CHF exacerbation, elevated LFTs. Patient's troponins 0.03 x3, echocardiogram showed EF 12.9%, severe aortic valvular stenosis. Patient was optimized on heart failure medication regimen as per Cardio. Tonight, patient's BP dropped down to 77/54. Patient denied cp, sob, nausea, vomiting, weakness, dizziness. Given 250 ml NS bolus with BP 81/59. Dr Sue contacted, who advised giving an addition 250 ml bolus. However, BP mildly improved from it. Patient then transferred to CCU for Levophed drip and further management. Patient reports mild clear cough, and mild lower abdominal discomfort (attributes it to muscular strain with coughing). Patient further denies fevers, chills, constipation, diarrhea, urinary symptoms. 12 point ROS obtained and negative, except as per hPI. PMHx: CAD (2 stents after an AK in 2012 and 1 stent in 2016 in [place]), AICD placement (last echocardiogram a few months ago per patient in [place] unknown EF), HTN, HLD PSHx: denies Allergies NKDA Social Hx: Former smoker. Denies ETOH and substance abuse. Visiting a friend locally but lives in [place]. Originally from [place]. 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 Fam Hx: brother diagnosed with heart disease at age 70 Medications: Digoxin 0.125 every day, furosemide 40 po BID, Plavix 75 mg every day, Spironolactone 25 half tab once a day, Carvedilol 6.25 mg BID, Losartan 25 mg, Atorvastatin 80, Aspirin 81 mg PMD: none Neighborhood Planner: Dr. Paulo Yen ([place]) Pharmacy: [facility] in [place], [place] Review of Systems - Review of Systems All systems: reviewed and no additional remarkable complaints except Review of Systems: as per HPI Past Patient History - Past Social History Smoking Status: Former Smoker - CARDIAC Hx Cardiac Disorders: Yes Hx Heart Attack: Yes Hx Hypercholesterolemia: Yes Hx Hypertension: Yes Hx Pacemaker: Yes Hx Peripheral Edema: Yes - PULMONARY Hx Respiratory Disorders: No - NEUROLOGICAL Hx Neurological Disorder: No - HEENT Hx HEENT Problems: No - RENAL Hx Chronic Kidney Disease: No - ENDOCRINE/METABOLIC Hx Endocrine Disorders: No - HEMATOLOGICAL/ONCOLOGICAL Hx Blood Disorders: No - INTEGUMENTARY Hx Dermatological Problems: No - MUSCULOSKELETAL/RHEUMATOLOGICAL Hx Musculoskeletal Disorders: No - GASTROINTESTINAL Hx Gastrointestinal Disorders: No - GENITOURINARY/GYNECOLOGICAL Hx Genitourinary Disorders: No - PSYCHIATRIC Hx Psychophysiologic Disorder: No Hx Substance Use: No - SURGICAL HISTORY Hx Surgeries: Yes Hx Cardiac Catheterization: Yes Hx Coronary Stent: Yes (x3) Meds Allergies/Adverse Reactions: Allergies Allergy/AdvReac Type Severity Reaction Status Date / Time No Known Allergies Allergy Verified 01/08/18 08:28 - Medications Medications: Current Medications Albuterol/Ipratropium (Duoneb 3 Mg/0.5 Mg (3 Ml) Ud) 3 ml IH [id number] [facility] Last Admin: 01/10/18 01:13 Dose: 3 ml Aspirin (Ecotrin) 81 mg PO DAILY [facility] Last Admin: 01/09/18 10:33 Dose: 81 mg Carvedilol (Coreg) 6.25 mg PO BID [facility] Last Admin: 01/09/18 18:14 Dose: Not Given Clopidogrel Bisulfate (Plavix) 75 mg PO DAILY [facility] Last Admin: 01/09/18 10:33 Dose: 75 mg Furosemide (Lasix) 40 mg IVP Q12 [facility] Last Admin: 01/09/18 22:18 Dose: Not Given Heparin Sodium (Porcine) (Heparin) 5,000 units SC Q8 [facility] PRN Reason: Protocol Last Admin: 01/09/18 22:17 Dose: 5,000 units NOREPINEPHRINE BIT/0.9 % NACL (Levophed 4 Mg/ 250 Ml Ns Premixed) 4 mg in 250 mls @ 15 mls/hr IV .[id number] PRN; Protocol; 4 MCG/MIN PRN Reason: TITRATE PER MD ORDER Last Admin: 01/10/18 04:00 Dose: 4 mcg/min, 15 mls/hr Losartan Potassium (Cozaar) 25 mg PO DAILY [facility] Last Admin: 01/09/18 10:31 Dose: 25 mg Pantoprazole Sodium (Protonix Inj) 40 mg IVP DAILY [facility] Last Admin: 01/09/18 10:34 Dose: 40 mg Physical Exam - Constitutional Appears: Non-toxic, No Acute Distress - Head Exam Head Exam: ATRAUMATIC, NORMOCEPHALIC - Eye Exam Eye Exam: EOMI, PERRL. absent: Conjunctival injection, Nystagmus, Scleral icterus Pupil Exam: NORMAL ACCOMODATION, PERRL. absent: Irregular, Miosis, Mydriatic, Unequal - ENT Exam ENT Exam: Mucous Membranes Moist - Neck Exam Neck exam: Positive for: Normal Inspection - Respiratory Exam Respiratory Exam: NORMAL BREATHING PATTERN. absent: Accessory Muscle Use, Chest Wall Tenderness, Wheezes, Respiratory Distress, Stridor Additional comments: mild bibasilar crackles - Cardiovascular Exam Cardiovascular Exam: RRR, +S1, +S2, Systolic Murmur - GI/Abdominal Exam GI & Abdominal Exam: Normal Bowel Sounds, Soft. absent: Distended, Firm, Guarding, Mass, Rebound, Rigid - Extremities Exam Extremities exam: Positive for: normal inspection, pedal edema - Back Exam Back exam: NORMAL INSPECTION - Neurological Exam Neurological exam: Alert, Oriented x3 - Psychiatric Exam Psychiatric exam: Normal Affect, Normal Mood - Skin Skin Exam: Dry, Normal Color, Warm Results - Vital Signs Recent Vital Signs: Last Vital Signs Temp 98.3 F 01/10/18 01:00 Pulse 78 01/10/18 03:20 Resp 20 01/10/18 03:20 BP 82/52 L 01/10/18 03:45 Pulse Ox 98 01/10/18 01:00 - Labs Result Diagrams: 01/09/18 06:00 01/09/18 06:00 Labs: Laboratory Results - last 24 hr 01/08/18 01/09/18 01/09/18 20:05 06:00 06:00 WBC 9.3 RBC 5.38 Hgb 14.8 Hct 45.3 MCV 84.2 MCH 27.5 MCHC 32.7 RDW 19.9 H Plt Count 234 MPV 9.5 Gran % 57.4 Lymph % (Auto) 30.1 [place] % (Auto) 10.4 H Eos % (Auto) 1.7 Baso % (Auto) 0.4 Gran # 5.32 Lymph # (Auto) 2.8 [place] # (Auto) 1.0 H Eos # (Auto) 0.2 Baso # (Auto) 0.04 PT 17.0 H INR 1.47 H APTT 36.7 H Sodium Potassium Chloride Carbon Dioxide Anion Gap BUN Creatinine Est GFR ( Amer) Est GFR (Non-Af Amer) Random Glucose Calcium Total Bilirubin AST ALT Alkaline Phosphatase Troponin I Total Protein Albumin Globulin Albumin/Globulin Ratio Triglycerides Cholesterol LDL Cholesterol Direct HDL Cholesterol Hepatitis A IgM Ab Negative Hep Bs Antigen Negative Hep B Core IgM Ab Negative Hepatitis C Antibody Negative 01/09/18 01/10/18 06:00 01:50 WBC RBC Hgb Hct MCV MCH MCHC RDW Plt Count MPV Gran % Lymph % (Auto) [place] % (Auto) Eos % (Auto) Baso % (Auto) Gran # Lymph # (Auto) [place] # (Auto) Eos # (Auto) Baso # (Auto) PT INR APTT Sodium 137 Potassium 4.9 Chloride 96 L Carbon Dioxide 30 Anion Gap 16 BUN 55 H Creatinine 1.6 H Est GFR ( Amer) 53 Est GFR (Non-Af Amer) 44 Random Glucose 143 H Calcium 8.8 Total Bilirubin 3.5 H AST 102 H D ALT 88 H Alkaline Phosphatase 116 Troponin I 0.02 D Total Protein 7.5 Albumin 3.8 Globulin 3.7 Albumin/Globulin Ratio 1.0 L Triglycerides 85 Cholesterol 104 L LDL Cholesterol Direct 70 HDL Cholesterol 15 L Hepatitis A IgM Ab Hep Bs Antigen Hep B Core IgM Ab Hepatitis C Antibody Assessment & Plan - Assessment and Plan (Free Text) Assessment: 62 year old man with a past medical history of CAD (2 stents after an AK in 2013 and 1 stent in 2017 in [place]), AICD placement (last echocardiogram a few months ago per patient in [place] unknown EF), HTN, HLD, initially admitted to [facility] for cp, sob, CHF exacerbation, elevated LFTs. Transferred to ICU for hypotension, further management: Neuro: AAOx3 today. No change in mental status. Cont to monitor. CV: Hypotension: 2/2 likely multiple cardiac medications - Given 250 ml x2 boluses on tele floor with mild improvement in BP - Further fluid boluses avoided as patient has severe aortic stenosis - Dr Sue aware. Appreciate recs - Transferred to CCU for levophed drip - responded well - patient's SBP 98-100s - will maintain MAP>65 - Will hold ARTIE-i and beta blockers. - Lasix with holding parameters - Will continue with Losartan as per Cardio - Will closely monitor in ICU Ischemic cardiomyopathy- HFrEF exacerbation: - Echo shows EF 12.9%. Severe aortic valvular stenosis. Grade II diastolic dysfunction. - On ARB. hold coreg in setting of hypotension. Lasix with holding parameters. Pulm: On RA. Saturating well. Maintain O2 sat>90% Continue with HOB elevation> 35 degrees GI: Continue with Protonix. HHD. Renal: Replace lytes, maintain euvolemia. Continue to monitor. ID: Afebrile, no leukocytosis. DVT ppx - heparin sq GI ppx - Protonix Case seen and discussed with Dr Mcgrath. <Aniceto Mcgrath - Last Filed: 01/10/18 11:06> Meds - Medications Medications: Current Medications Albuterol/Ipratropium (Duoneb 3 Mg/0.5 Mg (3 Ml) Ud) 3 ml IH [id number] [facility] Last Admin: 01/10/18 07:29 Dose: 3 ml Aspirin (Ecotrin) 81 mg PO DAILY [facility] Last Admin: 01/10/18 09:42 Dose: 81 mg Carvedilol (Coreg) 6.25 mg PO BID [facility] Last Admin: 01/09/18 18:14 Dose: Not Given Clopidogrel Bisulfate (Plavix) 75 mg PO DAILY [facility] Last Admin: 01/10/18 09:42 Dose: 75 mg Furosemide (Lasix) 20 mg IVP BID [facility] Heparin Sodium (Porcine) (Heparin) 5,000 units SC Q8 [facility] PRN Reason: Protocol Last Admin: 01/10/18 06:19 Dose: 5,000 units Losartan Potassium (Cozaar) 25 mg PO DAILY [facility] Last Admin: 01/09/18 10:31 Dose: 25 mg Pantoprazole Sodium (Protonix Inj) 40 mg IVP DAILY [facility] Last Admin: 01/10/18 09:41 Dose: 40 mg Polyethylene Glycol (Miralax) 17 gm PO BID [facility] Last Admin: 01/10/18 09:42 Dose: 17 gm Results - Vital Signs Recent Vital Signs: Last Vital Signs Temp 98.3 F 01/10/18 01:00 Pulse 73 01/10/18 07:40 Resp 23 01/10/18 07:40 BP 95/69 L 01/10/18 09:42 Pulse Ox 100 01/10/18 07:40 - Labs Result Diagrams: 01/10/18 05:00 01/10/18 05:00 Labs: Laboratory Results - last 24 hr 01/08/18 01/10/18 01/10/18 20:05 01:50 05:00 WBC 10.4 RBC 5.01 Hgb 13.7 L Hct 42.6 MCV 85.0 MCH 27.3 MCHC 32.2 RDW 20.2 H Plt Count 265 MPV 9.7 Gran % 51.8 Lymph % (Auto) 33.2 [place] % (Auto) 10.6 H Eos % (Auto) 4.1 Baso % (Auto) 0.3 Gran # 5.39 Lymph # (Auto) 3.5 H [place] # (Auto) 1.1 H Eos # (Auto) 0.4 Baso # (Auto) 0.03 Sodium Potassium Chloride Carbon Dioxide Anion Gap BUN Creatinine Est GFR ( Amer) Est GFR (Non-Af Amer) Random Glucose Calcium Total Bilirubin AST ALT Alkaline Phosphatase Troponin I 0.02 D Total Protein Albumin Globulin Albumin/Globulin Ratio Hepatitis A IgM Ab Negative Hep Bs Antigen Negative Hep B Core IgM Ab Negative Hepatitis C Antibody Negative 01/10/18 05:00 WBC RBC Hgb Hct MCV MCH MCHC RDW Plt Count MPV Gran % Lymph % (Auto) [place] % (Auto) Eos % (Auto) Baso % (Auto) Gran # Lymph # (Auto) [place] # (Auto) Eos # (Auto) Baso # (Auto) Sodium 137 Potassium 3.6 Chloride 96 L Carbon Dioxide 30 Anion Gap 14 BUN 46 H Creatinine 1.3 Est GFR ( Amer) > 60 Est GFR (Non-Af Amer) 56 Random Glucose 109 Calcium 8.3 L Total Bilirubin 2.0 H AST 75 H D ALT 78 H Alkaline Phosphatase 118 Troponin I Total Protein 6.8 Albumin 3.4 Globulin 3.4 Albumin/Globulin Ratio 1.0 L Hepatitis A IgM Ab Hep Bs Antigen Hep B Core IgM Ab Hepatitis C Antibody Attending/Attestation - Attestation I have personally seen and examined this patient.: Yes I have fully participated in the care of the patient.: Yes I have reviewed all pertinent clinical information: Yes Notes (Text): 01/10/18 11:06 Agree with note.
[2018-01-10 06:09] LABS: ALBUMIN 3.4 g/dL (3.0-4.8); ALT/SGPT 78 U/L (7-56); AST/SGOT 75 U/L (17-59); BLOOD UREA NITROGEN 46 mg/dL (7-21); CALCIUM 8.3 mg/dL (8.4-10.5); GFR AFRICAN-AMERICAN > 60; GFR NON-AFRICAN AMERICAN 56
[2018-01-10 06:11] LABS: BASO # 0.03 K/mm3 (0.0-2.0); BASO % 0.3 % (0.0-3.0); EOS # 0.4 (0.0-0.7); EOS % 4.1 % (1.5-5.0); GRAN # 5.39 (1.4-6.5); GRAN % 51.8 % (50.0-68.0); HEMOGLOBIN 13.7 g/dL (14.0-18.0); LYMPH # 3.5 (1.2-3.4); LYMPH % 33.2 % (22.0-35.0); MEAN CORPUSCULAR HEMOGLOBIN 27.3 pg (25.0-35.0); MEAN CORPUSCULAR HGB CONC 32.2 g/dl (31.0-37.0); MEAN PLATELET VOLUME 9.7 fl (7.0-11.0); MONO # 1.1 (0.1-0.6); MONO % 10.6 % (1.0-6.0); RBC 5.01 10^6/uL (3.5-6.1); RED CELL DISTRIBUTION WIDTH 20.2 % (11.5-14.5); WHITE BLOOD COUNT 10.4 10^3/ul (4.5-11.0)
[2018-01-10] MEDS: POLYETHYLENE GLYCOL 3350 17 GM/Dose PACKET PO SCH ×2 (09:42→17:00)
--- NOTE | 2018-01-10 10:51 | CP.PCM.PN ---
<Braxton Valerio - Last Filed: 01/10/18 14:34> Subjective - Date & Time of Evaluation Date of Evaluation: 01/10/18 Time of Evaluation: 07:00 - Subjective Subjective: Braxton Valerio PGY-1 Progress Note for Hospitalist Service Patient seen and evaluated at bedside in ICU. Patient denies CP, palpitations, SOB, abdominal pain, dysuria. Sitting in bed comfortably. Objective - Vital Signs/Intake and Output Vital Signs (last 24 hours): Temp Pulse Resp BP Pulse Ox 98.3 F 73 23 95/69 L 100 01/10/18 01:00 01/10/18 07:40 01/10/18 07:40 01/10/18 09:42 01/10/18 07:40 Intake and Output: 01/10/18 01/10/18 06:59 18:59 Intake Total 745 Output Total 200 Balance 545 - Medications Medications: Current Medications Albuterol/Ipratropium (Duoneb 3 Mg/0.5 Mg (3 Ml) Ud) 3 ml IH [id number] [facility] Last Admin: 01/10/18 07:29 Dose: 3 ml Aspirin (Ecotrin) 81 mg PO DAILY [facility] Last Admin: 01/10/18 09:42 Dose: 81 mg Carvedilol (Coreg) 6.25 mg PO BID [facility] Last Admin: 01/09/18 18:14 Dose: Not Given Clopidogrel Bisulfate (Plavix) 75 mg PO DAILY [facility] Last Admin: 01/10/18 09:42 Dose: 75 mg Furosemide (Lasix) 20 mg IVP DAILY [facility] Heparin Sodium (Porcine) (Heparin) 5,000 units SC Q8 [facility] PRN Reason: Protocol Last Admin: 01/10/18 06:19 Dose: 5,000 units Losartan Potassium (Cozaar) 25 mg PO DAILY [facility] Last Admin: 01/09/18 10:31 Dose: 25 mg Pantoprazole Sodium (Protonix Inj) 40 mg IVP DAILY [facility] Last Admin: 01/10/18 09:41 Dose: 40 mg Polyethylene Glycol (Miralax) 17 gm PO BID [facility] Last Admin: 01/10/18 09:42 Dose: 17 gm - Labs Labs: 01/10/18 05:00 01/10/18 05:00 PT 17.0 SECONDS (9.4-12.5) H 01/09/18 06:00 INR 1.47 (0.93-1.08) H 01/09/18 06:00 APTT 36.7 Seconds (25.1-36.5) H 01/09/18 06:00 - Constitutional Appears: Non-toxic, No Acute Distress - Head Exam Head Exam: ATRAUMATIC, NORMOCEPHALIC - Eye Exam Eye Exam: EOMI, PERRL. absent: Conjunctival injection, Nystagmus, Scleral icterus Pupil Exam: NORMAL ACCOMODATION, PERRL. absent: Irregular, Miosis, Mydriatic, Unequal - ENT Exam ENT Exam: Mucous Membranes Moist - Neck Exam Neck exam: Positive for: Normal Inspection - Respiratory Exam Respiratory Exam: NORMAL BREATHING PATTERN. absent: Accessory Muscle Use, Chest Wall Tenderness, Wheezes, Respiratory Distress, Stridor Additional comments: mild bibasilar crackles - Cardiovascular Exam Cardiovascular Exam: RRR, +S1, +S2, Systolic Murmur. AICD placement in L upper chest - GI/Abdominal Exam GI & Abdominal Exam: Normal Bowel Sounds, Soft. absent: Distended, Firm, Guarding, Mass, Rebound, Rigid - Extremities Exam Extremities exam: Positive for: normal inspection, 1+ pedal edema - Back Exam Back exam: NORMAL INSPECTION - Neurological Exam Neurological exam: Alert, Oriented x3 - Psychiatric Exam Psychiatric exam: Normal Affect, Normal Mood - Skin Skin Exam: Dry, Normal Color, Warm Assessment and Plan - Assessment and Plan (Free Text) Assessment: Assessment: 62 year old man with a past medical history of CAD (2 stents after an MT in 2012 and 1 stent in 2017 in [place]), AICD placement (last echocardiogram a few months ago per patient in [place] showed "nothing wrong"- unknown EF), HTN , HLD who presented with complaints of chest pain and shortness of breath on morning of admission. Transferred to ICU for hypotension management in setting of HFrEF of 12% yesterday. Plan: Hypotension Levophed drip 4 mcg/min, 15 ml/hr discontinued as pressures are rising. Chest pain r/o ACS- resolved Extensive cardiac history - AICD, CAD and MT with 3 stents, most recent in 2017 EKG in ED shows NSR @ 82, no ST changes, some lateral wall T wave inversions; f/ u repeat EKG Currently asymptomatic Troponins neg x4 (0.02 Overnight) C/w dual antiplatelet therapy Hold carvedilol, losartan until pressures improve- f/u cardio and ICU recs Losartan held due to LFTs on admission, will continue to trend TSH wnl Lipid panel wnl A1c pending Cardio consulted Ischemic cardiomyopathy- HFrEF exacerbation Severe Aortic stenosis with EF of 12% BNP 4080 on admission AICD in place Change lasix to 40 mg PO per cardio recs, will monitor clinical response Cr 1.8 => 1.6 this am Daily weights, strict I's/O's Mg elevated 2.4 on admission, will trend Total bilirubin 3.2, direct bili 1.8, pt asymptomatic; no c/o RUQ pain at this time LAURIE- improving BUN/Cr 55/1.8 on admission, 46/1.3 today Likely secondary to heart failure exacerbation Urine Na 54, Urine Cr 28, Urine osmol 327, Urea 451 U/A negative for UTI Elevated Liver Function Tests Congested liver likely secondary to heart failure trending down> AST/ALT 75/78 currently f/u coag studies; Tbili 2.0 and direct bili 1.8 Hepatitis panel negative Prophylaxis: Heparin 5000 TID, Protonix 40 IV Patient seen, case reviewed and plan discussed with Dr. Garcia. Braxton Valerio, PGY-1 <Max Garcia - Last Filed: 01/10/18 15:05> Objective - Vital Signs/Intake and Output Vital Signs (last 24 hours): Temp Pulse Resp BP Pulse Ox 98.3 F 73 23 95/69 L 100 01/10/18 01:00 01/10/18 07:40 01/10/18 07:40 01/10/18 09:42 01/10/18 07:40 Intake and Output: 01/10/18 01/10/18 06:59 18:59 Intake Total 745 Output Total 200 Balance 545 - Medications Medications: Current Medications Albuterol/Ipratropium (Duoneb 3 Mg/0.5 Mg (3 Ml) Ud) 3 ml IH [id number] [facility] Last Admin: 01/10/18 13:04 Dose: 3 ml Aspirin (Ecotrin) 81 mg PO DAILY [facility] Last Admin: 01/10/18 09:42 Dose: 81 mg Carvedilol (Coreg) 6.25 mg PO BID [facility] Last Admin: 01/09/18 18:14 Dose: Not Given Clopidogrel Bisulfate (Plavix) 75 mg PO DAILY [facility] Last Admin: 01/10/18 09:42 Dose: 75 mg Furosemide (Lasix) 40 mg PO DAILY [facility] Heparin Sodium (Porcine) (Heparin) 5,000 units SC Q8 [facility] PRN Reason: Protocol Last Admin: 01/10/18 13:46 Dose: 5,000 units Losartan Potassium (Cozaar) 25 mg PO DAILY [facility] Last Admin: 01/09/18 10:31 Dose: 25 mg Pantoprazole Sodium (Protonix Inj) 40 mg IVP DAILY [facility] Last Admin: 01/10/18 09:41 Dose: 40 mg Polyethylene Glycol (Miralax) 17 gm PO BID [facility] Last Admin: 01/10/18 09:42 Dose: 17 gm - Labs Labs: 01/10/18 05:00 01/10/18 05:00 PT 17.0 SECONDS (9.4-12.5) H 01/09/18 06:00 INR 1.47 (0.93-1.08) H 01/09/18 06:00 APTT 36.7 Seconds (25.1-36.5) H 01/09/18 06:00 Attending/Attestation - Attestation I have personally seen and examined this patient.: Yes I have fully participated in the care of the patient.: Yes I have reviewed all pertinent clinical information, including history, physical exam and plan: Yes Notes (Text): 01/10/18 15:03 Medical record note made by the resident after discussion with my direction and input after the patient was personally seen and examined by me. I have reviewed the chart and agree that the record accurately reflects by personal performance of the history, physical exam, data review, and medical decision-making, in the course for the patient. I have also personally directed the plan of care. 62 year old male with PMH of ischemic cardiomyopathy, SP MT and multiple cardiac stent, CHF with systolic dysfunction EF 12.5,SP AICD placement , HTN, HLD and noncompliance was admitted with chest pain and acute on chronic systolic CHF exacerbation. Serial troponins are normal. Last night was hypotensive and was transferred to ICU, was given fluid bolus and transient Levophed, now off pressor and IV fluid, Creatinin has improved to 1.3., Patient is for transfer to telemetry.Lasix has been changed to oral.Cardiology evaluation is appreciated. Management plan was discussed in detail with patient. Education was provided.
--- NOTE | 2018-01-10 12:51 | CARD ---
APPROVED REPORT Date of service: 01/10/2018 EKG Measurement Heart [id number] <Conclusion> Normal sinus rhythm Left axis deviation Nonspecific intraventricular block Lateral infarct, age undetermined Abnormal ECG
--- NOTE | 2018-01-10 13:06 | PN ---
DATE: 01/10/2018 This is being done on behalf of Dr. Seals whom I am covering. LOCATION: The patient in Coronary Care Unit 129, bed 2. REASON FOR CONSULTATION: Following his cardiomyopathy, congestive heart failure, AICD insertion, hypotension. SUBJECTIVE: The patient was admitted with congestive heart failure. The patient has severe cardiomyopathy along with severe aortic stenosis. Echo showed LV ejection fraction around 12. The patient while on telemetry floor, became hypotensive, so was transferred to the Intensive Care Unit. The patient doing all this did not have any chest pain. He says breathing is getting better. Denies any palpitations. PHYSICAL EXAMINATION: VITAL SIGNS: Blood pressure 95/69, respirations 23, pulse 73. The patient is afebrile. HEENT: Head is normocephalic. Eyes: Pupils normal. Conjunctivae normal. NECK: JVP low. Carotids equal. THORAX: AP diameter normal. LUNGS: No significant rales. CARDIOVASCULAR: S1 and S2. Systolic murmur. No rub. ABDOMEN: Soft. No tenderness. No organomegaly. EXTREMITIES: No clubbing. No cyanosis. LABORATORY DATA: WBC 10.4, hemoglobin 13.7, hematocrit 42.6, platelet 265. Sodium 137, potassium 3.6, BUN 46, creatinine 1.3. AST 75, ALT 78. Troponin normal. Total protein 6.8, albumin 3.4. The patient had an echocardiogram on 01/09/2018, which showed dilated LV with severely decreased LV ejection fraction close to 12%, RVSP 39 mmHg, grade II diastolic dysfunction, RV systolic function also severely reduced. Severe valvular aortic stenosis. Mild mitral regurg. Mild tricuspid regurg. Mild pulmonary hypertension. DIAGNOSES: Exacerbation of congestive heart failure, ischemic cardiomyopathy, status post automatic implantable cardioverter-defibrillator insertion, severe aortic stenosis, mild pulmonary hypertension, episode of hypotension during the night. The patient was transferred to Intensive Care Unit, now the blood pressure is stable. The patient on carvedilol 6.25 b.i.d., losartan 25 daily, aspirin 81 daily, heparin 5000 units subcutaneous every 8 hourly, furosemide 20 mg IV b.i.d. We will discontinue IV furosemide, we will start 40 p.o. daily. Plavix 75 daily, Protonix [address] Seals will follow the patient starting tomorrow. Max Sue MD [facility] # [id number]
--- NOTE | 2018-01-10 14:02 | CP.PCM.PN ---
Subjective - Date & Time of Evaluation Date of Evaluation: 01/10/18 Time of Evaluation: 08:40 - Subjective Subjective: Pt seen and examined, reports no major complaints Off Levophed drip Objective - Vital Signs/Intake and Output Vital Signs (last 24 hours): Temp Pulse Resp BP Pulse Ox 98.3 F 73 23 95/69 L 100 01/10/18 01:00 01/10/18 07:40 01/10/18 07:40 01/10/18 09:42 01/10/18 07:40 Intake and Output: 01/10/18 01/10/18 06:59 18:59 Intake Total 745 Output Total 200 Balance 545 - Medications Medications: Current Medications Albuterol/Ipratropium (Duoneb 3 Mg/0.5 Mg (3 Ml) Ud) 3 ml IH [id number] [facility] Last Admin: 01/10/18 13:04 Dose: 3 ml Aspirin (Ecotrin) 81 mg PO DAILY [facility] Last Admin: 01/10/18 09:42 Dose: 81 mg Carvedilol (Coreg) 6.25 mg PO BID [facility] Last Admin: 01/09/18 18:14 Dose: Not Given Clopidogrel Bisulfate (Plavix) 75 mg PO DAILY [facility] Last Admin: 01/10/18 09:42 Dose: 75 mg Furosemide (Lasix) 40 mg PO DAILY [facility] Heparin Sodium (Porcine) (Heparin) 5,000 units SC Q8 [facility] PRN Reason: Protocol Last Admin: 01/10/18 13:46 Dose: 5,000 units Losartan Potassium (Cozaar) 25 mg PO DAILY [facility] Last Admin: 01/09/18 10:31 Dose: 25 mg Pantoprazole Sodium (Protonix Inj) 40 mg IVP DAILY [facility] Last Admin: 01/10/18 09:41 Dose: 40 mg Polyethylene Glycol (Miralax) 17 gm PO BID [facility] Last Admin: 01/10/18 09:42 Dose: 17 gm - Labs Labs: 01/10/18 05:00 01/10/18 05:00 PT 17.0 SECONDS (9.4-12.5) H 01/09/18 06:00 INR 1.47 (0.93-1.08) H 01/09/18 06:00 APTT 36.7 Seconds (25.1-36.5) H 01/09/18 06:00 - Constitutional Appears: Non-toxic, No Acute Distress - Head Exam Head Exam: NORMAL INSPECTION - Eye Exam Eye Exam: Normal appearance - ENT Exam ENT Exam: Mucous Membranes Moist - Neck Exam Neck Exam: Full ROM - Respiratory Exam Respiratory Exam: Clear to Ausculation Bilateral, NORMAL BREATHING PATTERN - Cardiovascular Exam Cardiovascular Exam: REGULAR RHYTHM, +S1, +S2 - GI/Abdominal Exam GI & Abdominal Exam: Soft, Normal Bowel Sounds - Extremities Exam Extremities Exam: Full ROM, Normal Inspection - Neurological Exam Neurological Exam: Alert, Awake, Oriented x3 - Skin Skin Exam: Normal Color, Warm Assessment and Plan - Assessment and Plan (Free Text) Assessment: Pt is 62yo male with PMhx of CAD, CHF EF 12%, HTN, HLD, admitted for CHF exacerbation, transferred to MICU for hypotension. Hypotension, resovled CHF, chronic systolic CAD HTN HLD - currently afebrile, BP stable, comfortable in NAD, off levophed drip Recommend: - cont with supp o2 as needed - NO ID issues - Decrese Coreg to 3.125 BID, HOLD Lasix - DC Levophed - ASA, Plavix - Statin - Low salt diet - follow up cardiology - GI ppx - DVT ppx - Transfer to telemetry
[2018-01-11] MEDS ORDERED: Simethicone 80 mg Chewtab PO ONE (04:19)
[2018-01-11 05:38] LABS: BASO # 0.02 K/mm3 (0.0-2.0); BASO % 0.2 % (0.0-3.0); EOS # 0.3 (0.0-0.7); EOS % 3.3 % (1.5-5.0); GRAN # 5.35 (1.4-6.5); GRAN % 52.8 % (50.0-68.0); HEMOGLOBIN 13.5 g/dL (14.0-18.0); LYMPH # 3.3 (1.2-3.4); LYMPH % 32.5 % (22.0-35.0); MEAN CELL VOLUME 84.6 fl (80.0-105.0); MEAN CORPUSCULAR HEMOGLOBIN 26.9 pg (25.0-35.0); MEAN CORPUSCULAR HGB CONC 31.8 g/dl (31.0-37.0); MEAN PLATELET VOLUME 9.2 fl (7.0-11.0); MONO # 1.1 (0.1-0.6); MONO % 11.2 % (1.0-6.0); RBC 5.01 10^6/uL (3.5-6.1); RED CELL DISTRIBUTION WIDTH 20.3 % (11.5-14.5); WHITE BLOOD COUNT 10.2 10^3/ul (4.5-11.0)
[2018-01-11 05:59] LABS: ALBUMIN 3.5 g/dL (3.0-4.8); ALT/SGPT 74 U/L (7-56); AST/SGOT 53 U/L (17-59); BLOOD UREA NITROGEN 31 mg/dL (7-21); CALCIUM 8.5 mg/dL (8.4-10.5); GFR AFRICAN-AMERICAN > 60; GFR NON-AFRICAN AMERICAN > 60
[2018-01-11] MEDS: Pantoprazole 40 mg EC Tab PO SCH (06:07)
[2018-01-11] MEDS: Albuterol-Ipratrop 3 mg / 0.5 (3 ml) UD IH SCH ×3 (07:28→19:55)
--- NOTE | 2018-01-11 08:51 | CP.PCM.PN ---
<Braxton Valerio - Last Filed: 01/11/18 12:48> Subjective - Date & Time of Evaluation Date of Evaluation: 01/11/18 Time of Evaluation: 07:50 - Subjective Subjective: Braxton Valerio PGY-1 Progress Note for Hospitalist Service Patient seen and evaluated at bedside in ICU. Patient comfortable but reports some abdominal fullness. Denies CP, palpitations, abdominal pain, dysuria. Objective - Vital Signs/Intake and Output Vital Signs (last 24 hours): Temp Pulse Resp BP Pulse Ox 97.6 F 92 H 20 113/70 98 01/11/18 06:00 01/11/18 06:00 01/11/18 06:00 01/11/18 06:00 01/11/18 06:00 Intake and Output: 01/11/18 01/11/18 06:59 18:59 Intake Total 800 Output Total 650 Balance 150 - Medications Medications: Current Medications Albuterol/Ipratropium (Duoneb 3 Mg/0.5 Mg (3 Ml) Ud) 3 ml IH [id number] [facility] Last Admin: 01/11/18 07:28 Dose: 3 ml Aspirin (Ecotrin) 81 mg PO DAILY [facility] Last Admin: 01/10/18 09:42 Dose: 81 mg Carvedilol (Coreg) 6.25 mg PO BID [facility] Last Admin: 01/09/18 18:14 Dose: Not Given Clopidogrel Bisulfate (Plavix) 75 mg PO DAILY [facility] Last Admin: 01/10/18 09:42 Dose: 75 mg Furosemide (Lasix) 40 mg PO DAILY [facility] Heparin Sodium (Porcine) (Heparin) 5,000 units SC Q8 [facility] PRN Reason: Protocol Last Admin: 01/11/18 05:12 Dose: 5,000 units Losartan Potassium (Cozaar) 25 mg PO DAILY [facility] Last Admin: 01/09/18 10:31 Dose: 25 mg Pantoprazole Sodium (Protonix Ec Tab) 40 mg PO 0600 [facility] Last Admin: 01/11/18 06:07 Dose: 40 mg Polyethylene Glycol (Miralax) 17 gm PO BID [facility] Last Admin: 01/10/18 17:00 Dose: 17 gm - Labs Labs: 01/11/18 05:20 01/11/18 05:20 PT 17.0 SECONDS (9.4-12.5) H 01/09/18 06:00 INR 1.47 (0.93-1.08) H 01/09/18 06:00 APTT 36.7 Seconds (25.1-36.5) H 01/09/18 06:00 - Constitutional Appears: Non-toxic, No Acute Distress - Head Exam Head Exam: ATRAUMATIC, NORMOCEPHALIC - Eye Exam Eye Exam: EOMI, PERRL. absent: Conjunctival injection, Nystagmus, Scleral icterus Pupil Exam: NORMAL ACCOMODATION, PERRL. absent: Irregular, Miosis, Mydriatic, Unequal - ENT Exam ENT Exam: Mucous Membranes Moist - Neck Exam Neck exam: Positive for: Normal Inspection - Respiratory Exam Respiratory Exam: NORMAL BREATHING PATTERN. absent: Accessory Muscle Use, Chest Wall Tenderness, Wheezes, Respiratory Distress, Stridor Additional comments: mild bibasilar crackles - Cardiovascular Exam Cardiovascular Exam: RRR, +S1, +S2, Systolic Murmur. AICD placement in L upper chest - GI/Abdominal Exam GI & Abdominal Exam: Normal Bowel Sounds, Soft. absent: Distended, Firm, Guarding, Mass, Rebound, Rigid - Extremities Exam Extremities exam: Positive for: normal inspection, 1+ pedal edema - Back Exam Back exam: NORMAL INSPECTION - Neurological Exam Neurological exam: Alert, Oriented x3 - Psychiatric Exam Psychiatric exam: Normal Affect, Normal Mood - Skin Skin Exam: Dry, Normal Color, Warm Assessment and Plan - Assessment and Plan (Free Text) Assessment: Assessment: 62 year old man with a past medical history of CAD (2 stents after an [place] in 2012 and 1 stent in 2017 in [place]), AICD placement (last echocardiogram a few months ago per patient in [place] showed "nothing wrong"- unknown EF), HTN , HLD who presented with complaints of chest pain and shortness of breath on morning of admission. Transferred to ICU for hypotension management in setting of HFrEF of 12%. Plan: Hypotension - resolved Currently asymptomatic Levophed drip discontinued yesterday. Chest pain r/o ACS- resolved Extensive cardiac history - AICD, CAD and [place] with 3 stents, most recent in 2016 EKG in ED shows NSR @ 82, no ST changes, some lateral wall T wave inversions; f/ u repeat EKG Troponins neg x4 C/w dual antiplatelet therapy C/w carvedilol 6.25 and losartan 25 per cardio, f/u cardio and ICU recs. LFTs improved TSH wnl Lipid panel wnl A1c pending Cardio consulted - appreciate recs from Dr. Seals regarding medications upon discharge Ischemic cardiomyopathy- HFrEF exacerbation Severe Aortic stenosis with EF of 12% BNP 4080 on admission AICD in place Lasix 40 mg PO per cardio recs, will monitor clinical response Daily weights, strict I's/O's - +500 today Total bili trended down to 2.1; pt asymptomatic; no c/o RUQ pain at this time LAURIE- improving BUN/Cr 55/1.8 on admission, 33/1.1 today Likely secondary to heart failure exacerbation Urine Na 54, Urine Cr 28, Urine osmol 327, Urea 451 U/A negative for UTI Elevated Liver Function Tests Congested liver likely secondary to heart failure trending down: AST/ALT 53/74 currently Hepatitis panel negative Abd Xray negative for active disease Prophylaxis: Heparin 5000 TID, Protonix 40 PO daily Patient seen, case reviewed and plan discussed with Dr. Morales. Braxton Valerio, PGY-1 <Joselin Morales - Last Filed: 01/11/18 17:04> Objective - Vital Signs/Intake and Output Vital Signs (last 24 hours): Temp Pulse Resp BP Pulse Ox 98.1 F 87 41 H 146/95 H 98 01/11/18 12:00 01/11/18 14:00 01/11/18 12:00 01/11/18 12:00 01/11/18 12:00 Intake and Output: 01/11/18 01/11/18 06:59 18:59 Intake Total 800 480 Output Total 650 150 Balance 150 330 - Medications Medications: Current Medications Albuterol/Ipratropium (Duoneb 3 Mg/0.5 Mg (3 Ml) Ud) 3 ml IH [id number] [facility] Last Admin: 01/11/18 14:00 Dose: 3 ml Aspirin (Ecotrin) 81 mg PO DAILY [facility] Last Admin: 01/11/18 09:59 Dose: 81 mg Carvedilol (Coreg) 6.25 mg PO BID [facility] Last Admin: 01/09/18 18:14 Dose: Not Given Clopidogrel Bisulfate (Plavix) 75 mg PO DAILY [facility] Last Admin: 01/11/18 10:00 Dose: 75 mg Furosemide (Lasix) 40 mg PO DAILY [facility] Last Admin: 01/11/18 10:00 Dose: 40 mg Heparin Sodium (Porcine) (Heparin) 5,000 units SC Q8 [facility] PRN Reason: Protocol Last Admin: 01/11/18 14:49 Dose: 5,000 units Losartan Potassium (Cozaar) 25 mg PO DAILY [facility] Last Admin: 01/09/18 10:31 Dose: 25 mg Pantoprazole Sodium (Protonix Ec Tab) 40 mg PO 0600 [facility] Last Admin: 01/11/18 06:07 Dose: 40 mg Polyethylene Glycol (Miralax) 17 gm PO BID [facility] Last Admin: 01/11/18 11:30 Dose: Not Given - Labs Labs: 01/11/18 05:20 01/11/18 05:20 PT 17.0 SECONDS (9.4-12.5) H 01/09/18 06:00 INR 1.47 (0.93-1.08) H 01/09/18 06:00 APTT 36.7 Seconds (25.1-36.5) H 01/09/18 06:00 Attending/Attestation - Attestation I have personally seen and examined this patient.: Yes I have fully participated in the care of the patient.: Yes I have reviewed all pertinent clinical information, including history, physical exam and plan: Yes Notes (Text): 01/11/18 16:55 62 year old male with past medical history of cardiomyopathy, systolic CHF, s/p AICD, s/p stent, hypertension and dyslipidemia and history of noncompliance who presented with complaint of chest pain and shortness of breath secondary to acute on chronic CHF exacerbation. Serial cardiac enzymes were negative and ACS was ruled out. He was on iv lasix now switched to po. He was briefly hypotensive requiring levophed which is now tapered off. He had LAURIE which resolved and elevated LFTs will improved. He is on aspirin, plavix, coreg, cozaar and lasix. Statin is on hold for now. Spironalactone was also held. Miralax also held for now due to loose stools. Downgrade from ICU to telemetry unit. Will follow up with cardiology recommendations. D/c planning. Joselin Morales MD Hospitalist.
--- NOTE | 2018-01-11 09:12 | RAD ---
Date of service: 01/10/2018 HISTORY: abdominal distention COMPARISON: No prior. FINDINGS: BOWEL: Normal. No obstruction. No free air. BONES: Normal. OTHER FINDINGS: None. IMPRESSION: No active disease.
[2018-01-11] MEDS: POLYETHYLENE GLYCOL 3350 17 GM/Dose PACKET PO SCH ×2 (10:00→11:30)
--- NOTE | 2018-01-11 22:38 | PN ---
DATE: 01/11/2018 SUBJECTIVE: The patient was transferred to ICU because of hypertensive episode. The patient denies any dizziness or chest pain at this time. He is mildly short of breath. PHYSICAL EXAMINATION VITAL SIGNS: Blood pressure 103/76, heart rate 89, temperature 98.2, respiration 20. HEENT: Normocephalic. NECK: Jugular venous distention is noted. CHEST: Minimal basal rhonchi. HEART: S1 and S2 regular. EXTREMITIES: 1+ pitting edema. LABORATORY DATA: Today's hemoglobin and hematocrit 15.5 and 42.4. White count and platelet count are within normal limit. Today's SMA-7 is within normal limit except for BUN of 31, which is significant improvement compared to earlier number. A portable abdominal x-ray revealed no active disease. Echocardiographic study revealed severely dilated and severe hypokinetic left ventricle with akinetic apical septum, severely reduced right ventricular systolic function, severe valvular aortic stenosis and mild aortic insufficiency, with mild pulmonary hypertension. Venous Doppler of the lower extremities, no sonographic evidence of DVT. ASSESSMENT: 1. Ischemic cardiomyopathy. 2. Right-sided heart failure. 3. Severe aortic stenosis. 4. Status post hypertensive episode. 5. Status post implantable cardioverter-defibrillator placement with recent appropriate discharge of the implantable cardioverter-defibrillator some 3 to 4 weeks ago. 6. Improved prerenal azotemia. 7. History of multiple coronary stenting in the past, most recent one was a little more than one year ago. RECOMMENDATIONS: Continue Coreg 6.25 mg twice a day, Cozaar 25 mg daily, aspirin 81 mg once a day, subcutaneous heparin 5000 units every 8 hours, Lasix 40 mg p.o. once a day, Plavix 75 mg once a day. Jorge Cooper MD
[2018-01-12] MEDS: Albuterol-Ipratrop 3 mg / 0.5 (3 ml) UD IH SCH ×3 (01:23→13:15)
[2018-01-12] MEDS: Pantoprazole 40 mg EC Tab PO SCH (05:48)
[2018-01-12 06:29] VITALS: O2SAT 96
[2018-01-12 06:42] LABS: BASO # 0.03 K/mm3 (0.0-2.0); BASO % 0.3 % (0.0-3.0); EOS # 0.4 (0.0-0.7); EOS % 4.5 % (1.5-5.0); GRAN # 4.24 (1.4-6.5); HEMOGLOBIN 14.4 g/dL (14.0-18.0); LYMPH # 3.4 (1.2-3.4); LYMPH % 37.7 % (22.0-35.0); MEAN CELL VOLUME 85.5 fl (80.0-105.0); MEAN CORPUSCULAR HEMOGLOBIN 26.8 pg (25.0-35.0); MEAN CORPUSCULAR HGB CONC 31.4 g/dl (31.0-37.0); MEAN PLATELET VOLUME 9.3 fl (7.0-11.0); MONO % 10.5 % (1.0-6.0); RBC 5.37 10^6/uL (3.5-6.1); RED CELL DISTRIBUTION WIDTH 20.5 % (11.5-14.5)
[2018-01-12 06:46] LABS: ALBUMIN 3.8 g/dL (3.0-4.8); ALT/SGPT 61 U/L (7-56); AST/SGOT 40 U/L (17-59); BLOOD UREA NITROGEN 26 mg/dL (7-21); CALCIUM 9.1 mg/dL (8.4-10.5); GFR AFRICAN-AMERICAN > 60; GFR NON-AFRICAN AMERICAN > 60
[2018-01-12 12:41] VITALS: RESP 20; TEMP 97.8
--- NOTE | 2018-01-12 16:17 | CP.PCM.DIS ---
Provider - Provider Date of Admission: 01/08/18 11:03 Attending physician: Joselin Morales MD Primary care physician: NO PRIMARY CARE PROVIDER Consults: Cardio: Arnel Hospital Course - Lab Results Lab Results: Micro Results 01/10/18 04:00 Naris MRSA Culture (Admit) - Final MRSA NOT DETECTED Most Recent Lab Values WBC 9.0 10^3/ul (4.5-11.0) 01/12/18 06:00 RBC 5.37 10^6/uL (3.5-6.1) 01/12/18 06:00 Hgb 14.4 g/dL (14.0-18.0) 01/12/18 06:00 Hct 45.9 % (42.0-52.0) 01/12/18 06:00 MCV 85.5 fl (80.0-105.0) 01/12/18 06:00 MCH 26.8 pg (25.0-35.0) 01/12/18 06:00 MCHC 31.4 g/dl (31.0-37.0) 01/12/18 06:00 RDW 20.5 % (11.5-14.5) H 01/12/18 06:00 Plt Count 244 10^3/uL (120.0-450.0) 01/12/18 06:00 MPV 9.3 fl (7.0-11.0) 01/12/18 06:00 Gran % 47.0 % (50.0-68.0) L 01/12/18 06:00 Lymph % (Auto) 37.7 % (22.0-35.0) H 01/12/18 06:00 Grant % (Auto) 10.5 % (1.0-6.0) H 01/12/18 06:00 Eos % (Auto) 4.5 % (1.5-5.0) 01/12/18 06:00 Baso % (Auto) 0.3 % (0.0-3.0) 01/12/18 06:00 Gran # 4.24 (1.4-6.5) 01/12/18 06:00 Lymph # (Auto) 3.4 (1.2-3.4) 01/12/18 06:00 Grant # (Auto) 1.0 (0.1-0.6) H 01/12/18 06:00 Eos # (Auto) 0.4 (0.0-0.7) 01/12/18 06:00 Baso # (Auto) 0.03 K/mm3 (0.0-2.0) 01/12/18 06:00 PT 17.0 SECONDS (9.4-12.5) H 01/09/18 06:00 INR 1.47 (0.93-1.08) H 01/09/18 06:00 APTT 36.7 Seconds (25.1-36.5) H 01/09/18 06:00 Sodium 140 mmol/L (132-148) 01/12/18 06:00 Potassium 4.0 mmol/L (3.6-5.0) 01/12/18 06:00 Chloride 99 mmol/L (98-107) 01/12/18 06:00 Carbon Dioxide 28 mmol/L (21-33) 01/12/18 06:00 Anion Gap 16 (10-20) 01/12/18 06:00 BUN 26 mg/dL (7-21) H 01/12/18 06:00 Creatinine 1.2 mg/dl (0.8-1.5) 01/12/18 06:00 Est GFR ( Amer) > 60 01/12/18 06:00 Est GFR (Non-Af Amer) > 60 01/12/18 06:00 Random Glucose 87 mg/dL (70-110) 01/12/18 06:00 Hemoglobin A1c 6.7 % (4.2-6.5) H 01/08/18 08:30 Calcium 9.1 mg/dL (8.4-10.5) 01/12/18 06:00 Phosphorus 4.1 mg/dL (2.5-4.5) 01/08/18 14:15 Magnesium 2.3 mg/dL (1.7-2.2) H 01/08/18 14:15 Total Bilirubin 2.1 mg/dL (0.2-1.3) H 01/12/18 06:00 Direct Bilirubin 1.8 mg/dL (0.0-0.4) H 01/08/18 14:15 AST 40 U/L (17-59) 01/12/18 06:00 ALT 61 U/L (7-56) H 01/12/18 06:00 Alkaline Phosphatase 156 U/L (38-126) H D 01/12/18 06:00 Lactate Dehydrogenase 820 U/L (333-699) H 01/08/18 08:44 Total Creatine Kinase 134 U/L (35-230) 01/08/18 08:44 Troponin I 0.02 ng/mL D 01/10/18 01:50 NT-Pro-B Natriuret Pep 4080 pg/mL (0-450) H 01/08/18 08:44 Total Protein 7.5 g/dL (5.8-8.3) 01/12/18 06:00 Albumin 3.8 g/dL (3.0-4.8) 01/12/18 06:00 Globulin 3.7 gm/dL 01/12/18 06:00 Albumin/Globulin Ratio 1.0 (1.1-1.8) L 01/12/18 06:00 Triglycerides 85 mg/dL (35-160) 01/09/18 06:00 Cholesterol 104 mg/dL (130-200) L 01/09/18 06:00 LDL Cholesterol Direct 70 mg/dL (0-129) 01/09/18 06:00 HDL Cholesterol 15 mg/dL (29-60) L 01/09/18 06:00 TSH 3rd Generation 2.63 mIU/mL (0.46-4.68) 01/08/18 08:30 Urine Color Yellow (YELLOW) 01/08/18 17:03 Urine Appearance Clear (CLEAR) 01/08/18 17:03 Urine pH 6.5 (4.7-8.0) 01/08/18 17:03 Ur Specific [place] <= 1.005 (1.005-1.035) 01/08/18 17:03 Urine Protein Negative mg/dL (<30 mg/dL) 01/08/18 17:03 Urine Glucose (UA) Negative mg/dL (NEGATIVE) 01/08/18 17:03 Urine Ketones Negative mg/dL (NEGATIVE) 01/08/18 17:03 Urine Blood Negative (NEGATIVE) 01/08/18 17:03 Urine Nitrate Negative (NEGATIVE) 01/08/18 17:03 Urine Bilirubin Negative (NEGATIVE) 01/08/18 17:03 Urine Urobilinogen >=8.0 E.U./dL (<1 E.U./dL) 01/08/18 17:03 Ur Leukocyte Esterase Negative Chava/uL (NEGATIVE) 01/08/18 17:03 Urine Osmolality 327 mosm/kg (300-1000) 01/08/18 17:03 Ur Random Creatinine 28 mg/dL 01/08/18 17:03 Ur Random Sodium 54 meq/L 01/08/18 17:03 Ur Random Urea Nitrogn 451 mg/dL 01/08/18 17:03 Hepatitis A IgM Ab Negative (NEGATIVE) 01/08/18 20:05 Hep Bs Antigen Negative (NEGATIVE) 01/08/18 20:05 Hep B Core IgM Ab Negative (NEGATIVE) 01/08/18 20:05 Hepatitis C Antibody Negative (NEGATIVE) 01/08/18 20:05 - Hospital Course Hospital Course: This is a 62 year old man with a past medical history of CAD s/p stenting (last one in 2016), CHF with EF 12%, AICD placement, HTN, and HLD who presented to [facility] with complaints of chest pain and shortness of breath on morning of admission. While here, patient experienced a hypotensive episode, requiring transfer to ICU for pressor support. Hypotensive episodes resolved, pressor support no longer required, and patient stable for discharge. While here, patient also seen by Cardio, who recommended resuming all home medications except for his statin in light of his elevated LFTs while here. Cardio recs holding statin until patient can follow up with their outpatient rug hooker at [facility], pending their reassessment and new recs. Additionally, as per Cardio's recs, his home lasix was increased to 40mg PO daily. Instructions were relayed to patient, who expressed understanding and agreement. New prescription for Lasix was called in to in-house outpatient pharmacy to be available to patient immediately on discharge. Reviewed warning signs of new hypotension with patient, with instructions to re-present to a hospital for any warning symptoms, including syncope/near-syncope, unstable gait , or severe acute weakness. Patient again expressed understanding and agreement. Instructions to follow up with his Tooling Engineer at [place] as soon as possible. Patient has no PMD, so appointment at [facility] was arranged for Thursday (01/18/18) at 4pm. Instructions for follow up and Clinic appointment relayed to patient, who expressed understanding and agreement. Patient was then discharged to home. Patient was seen, reviewed, and discussed with attending, Dr. Morales. Discharge Exam - Head Exam Head Exam: NORMAL INSPECTION Discharge Plan - Discharge Medications Prescriptions: Furosemide [Lasix] 40 mg PO DAILY #30 tab - Follow Up Plan Condition: STABLE Disposition: HOME/ ROUTINE Instructions: Heart Healthy Diet, Heart Failure, Adult (DC), Shortness of Breath (Dyspnea) (DC), How to Weigh Yourself Referrals: PCP,NO [Primary Care Provider] -
[2018-01-12 17:28] VITALS: BP 106/76; PULSE 87
--- NOTE | 2018-01-12 18:48 | CP.PCM.DIS ---
<Braxton Valerio - Last Filed: 01/12/18 18:44> Provider - Provider Date of Admission: 01/08/18 11:03 Attending physician: Joselin Morales MD Primary care physician: FRANKY PRIMARY CARE PROVIDER Consults: Dr. Seals Time Spent in preparation of Discharge (in minutes): 45 Diagnosis - Discharge Diagnosis (1) Heart failure Status: Chronic Hospital Course - Lab Results Lab Results: Micro Results 01/10/18 04:00 Naris MRSA Culture (Admit) - Final MRSA NOT DETECTED Most Recent Lab Values WBC 9.0 10^3/ul (4.5-11.0) 01/12/18 06:00 RBC 5.37 10^6/uL (3.5-6.1) 01/12/18 06:00 Hgb 14.4 g/dL (14.0-18.0) 01/12/18 06:00 Hct 45.9 % (42.0-52.0) 01/12/18 06:00 MCV 85.5 fl (80.0-105.0) 01/12/18 06:00 MCH 26.8 pg (25.0-35.0) 01/12/18 06:00 MCHC 31.4 g/dl (31.0-37.0) 01/12/18 06:00 RDW 20.5 % (11.5-14.5) H 01/12/18 06:00 Plt Count 244 10^3/uL (120.0-450.0) 01/12/18 06:00 MPV 9.3 fl (7.0-11.0) 01/12/18 06:00 Gran % 47.0 % (50.0-68.0) L 01/12/18 06:00 Lymph % (Auto) 37.7 % (22.0-35.0) H 01/12/18 06:00 [place] % (Auto) 10.5 % (1.0-6.0) H 01/12/18 06:00 Eos % (Auto) 4.5 % (1.5-5.0) 01/12/18 06:00 Baso % (Auto) 0.3 % (0.0-3.0) 01/12/18 06:00 Gran # 4.24 (1.4-6.5) 01/12/18 06:00 Lymph # (Auto) 3.4 (1.2-3.4) 01/12/18 06:00 [place] # (Auto) 1.0 (0.1-0.6) H 01/12/18 06:00 Eos # (Auto) 0.4 (0.0-0.7) 01/12/18 06:00 Baso # (Auto) 0.03 K/mm3 (0.0-2.0) 01/12/18 06:00 PT 17.0 SECONDS (9.4-12.5) H 01/09/18 06:00 INR 1.47 (0.93-1.08) H 01/09/18 06:00 APTT 36.7 Seconds (25.1-36.5) H 01/09/18 06:00 Sodium 140 mmol/L (132-148) 01/12/18 06:00 Potassium 4.0 mmol/L (3.6-5.0) 01/12/18 06:00 Chloride 99 mmol/L (98-107) 01/12/18 06:00 Carbon Dioxide 28 mmol/L (21-33) 01/12/18 06:00 Anion Gap 16 (10-20) 01/12/18 06:00 BUN 26 mg/dL (7-21) H 01/12/18 06:00 Creatinine 1.2 mg/dl (0.8-1.5) 01/12/18 06:00 Est GFR ( Amer) > 60 01/12/18 06:00 Est GFR (Non-Af Amer) > 60 01/12/18 06:00 Random Glucose 87 mg/dL (70-110) 01/12/18 06:00 Hemoglobin A1c 6.7 % (4.2-6.5) H 01/08/18 08:30 Calcium 9.1 mg/dL (8.4-10.5) 01/12/18 06:00 Phosphorus 4.1 mg/dL (2.5-4.5) 01/08/18 14:15 Magnesium 2.3 mg/dL (1.7-2.2) H 01/08/18 14:15 Total Bilirubin 2.1 mg/dL (0.2-1.3) H 01/12/18 06:00 Direct Bilirubin 1.8 mg/dL (0.0-0.4) H 01/08/18 14:15 AST 40 U/L (17-59) 01/12/18 06:00 ALT 61 U/L (7-56) H 01/12/18 06:00 Alkaline Phosphatase 156 U/L (38-126) H D 01/12/18 06:00 Lactate Dehydrogenase 820 U/L (333-699) H 01/08/18 08:44 Total Creatine Kinase 134 U/L (35-230) 01/08/18 08:44 Troponin I 0.02 ng/mL D 01/10/18 01:50 NT-Pro-B Natriuret Pep 4080 pg/mL (0-450) H 01/08/18 08:44 Total Protein 7.5 g/dL (5.8-8.3) 01/12/18 06:00 Albumin 3.8 g/dL (3.0-4.8) 01/12/18 06:00 Globulin 3.7 gm/dL 01/12/18 06:00 Albumin/Globulin Ratio 1.0 (1.1-1.8) L 01/12/18 06:00 Triglycerides 85 mg/dL (35-160) 01/09/18 06:00 Cholesterol 104 mg/dL (130-200) L 01/09/18 06:00 LDL Cholesterol Direct 70 mg/dL (0-129) 01/09/18 06:00 HDL Cholesterol 15 mg/dL (29-60) L 01/09/18 06:00 TSH 3rd Generation 2.63 mIU/mL (0.46-4.68) 01/08/18 08:30 Urine Color Yellow (YELLOW) 01/08/18 17:03 Urine Appearance Clear (CLEAR) 01/08/18 17:03 Urine pH 6.5 (4.7-8.0) 01/08/18 17:03 Ur Specific [place] <= 1.005 (1.005-1.035) 01/08/18 17:03 Urine Protein Negative mg/dL (<30 mg/dL) 01/08/18 17:03 Urine Glucose (UA) Negative mg/dL (NEGATIVE) 01/08/18 17:03 Urine Ketones Negative mg/dL (NEGATIVE) 01/08/18 17:03 Urine Blood Negative (NEGATIVE) 01/08/18 17:03 Urine Nitrate Negative (NEGATIVE) 01/08/18 17:03 Urine Bilirubin Negative (NEGATIVE) 01/08/18 17:03 Urine Urobilinogen >=8.0 E.U./dL (<1 E.U./dL) 01/08/18 17:03 Ur Leukocyte Esterase Negative Chava/uL (NEGATIVE) 01/08/18 17:03 Urine Osmolality 327 mosm/kg (300-1000) 01/08/18 17:03 Ur Random Creatinine 28 mg/dL 01/08/18 17:03 Ur Random Sodium 54 meq/L 01/08/18 17:03 Ur Random Urea Nitrogn 451 mg/dL 01/08/18 17:03 Hepatitis A IgM Ab Negative (NEGATIVE) 01/08/18 20:05 Hep Bs Antigen Negative (NEGATIVE) 01/08/18 20:05 Hep B Core IgM Ab Negative (NEGATIVE) 01/08/18 20:05 Hepatitis C Antibody Negative (NEGATIVE) 01/08/18 20:05 - Hospital Course Hospital Course: Braxton Valerio, Discharge Summary for Hospitalist Service This is a 62 year old man with a past medical history of CAD s/p stenting (last one in 2016), CHF with EF 12%, AICD placement, HTN, and HLD who presented to [facility] with complaints of chest pain and shortness of breath on morning of admission. While here, patient experienced a hypotensive episode, requiring transfer to ICU for pressor support. Hypotensive episodes resolved, pressor support no longer required, and patient stable for discharge. While here, patient also seen by Cardio, who recommended resuming all home medications except for his statin in light of his elevated LFTs while here. Cardio recs holding statin until patient can follow up with their outpatient membership advisor in [place], pending their reassessment and new recs. Additionally, as per Cardio's recs, his home lasix was increased to 40mg PO daily. Instructions were relayed to patient, who expressed understanding and agreement. New prescription for Lasix was called in to in-house outpatient pharmacy to be available to patient immediately on discharge. Reviewed warning signs of new hypotension with patient, with instructions to re-present to a hospital for any warning symptoms, including syncope/near-syncope, unstable gait , or severe acute weakness. Patient again expressed understanding and agreement. Instructions to follow up with his [employer] in [place] as soon as possible. Patient has no PMD, so appointment at [facility] was arranged for Thursday (01/18/18) at 4pm. Instructions for follow up and Clinic appointment relayed to patient, who expressed understanding and agreement. Patient was then discharged with friend home. Patient was seen, reviewed, and discussed with attending, Dr. Morales. Coreg 6.25 BID Spironolactone 12.5 PO Cozaar 25 Digoxin 0.125 mg ASA 81 Plavix 75 Lasix 40 PO Discharge Exam - Head Exam Head Exam: NORMAL INSPECTION - Eye Exam Eye Exam: EOMI, Normal appearance Pupil Exam: PERRL - ENT Exam ENT Exam: Mucous Membranes Moist - Neck Exam Neck exam: Full Rom - Respiratory Exam Respiratory Exam: NORMAL BREATHING PATTERN, UNREMARKABLE. absent: Accessory Muscle Use, Rales, Rhonchi, Wheezes, Respiratory Distress - Cardiovascular Exam Cardiovascular Exam: RRR, +S1, +S2. absent: Tachycardia, JVD Additional comments: AICD in place in R upper chest. - GI/Abdominal Exam GI & Abdominal Exam: Normal Bowel Sounds, Unremarkable. absent: Pulsatile Mass , Rebound, Tenderness - Extremities Exam Extremities exam: pedal edema (1+ up to knees. No calf tenderness or pain present), pedal pulses present - Neurological Exam Neurological exam: Alert, Oriented x3 - Psychiatric Exam Psychiatric exam: Normal Affect, Normal Mood - Skin Skin Exam: Dry, Intact, Normal Color, Warm Discharge Plan - Discharge Medications Prescriptions: Furosemide [Lasix] 40 mg PO DAILY #30 tab - Follow Up Plan Condition: STABLE Disposition: HOME/ ROUTINE Instructions: Heart Healthy Diet, Heart Failure, Adult (DC), Shortness of Breath (Dyspnea) (DC), How to Weigh Yourself Additional Instructions: 1. Patient should follow up in [facility] clinic on Thursday 01/18 at 4 pm. 2. Patient should follow up with membership advisor (Dr. Paulo Yen per patient) in [place] within week. Please discuss your statin medication which is currently being held due to elevated liver function tests. 3. Patient should take all medications as prescribed, including Lasix sent to Pharmacy and hand delivered to patient. 4. Should symptoms recur or worsen, please return to your nearest emergency department. Referrals: PCP,NO [Primary Care Provider] - <Joselin Morales - Last Filed: 01/13/18 07:54> Provider - Provider Date of Admission: 01/08/18 11:03 Attending physician: Joselin Morales MD Primary care physician: NO PRIMARY CARE PROVIDER Hospital Course - Lab Results Lab Results: Micro Results 01/10/18 04:00 Naris MRSA Culture (Admit) - Final MRSA NOT DETECTED Most Recent Lab Values WBC 9.0 10^3/ul (4.5-11.0) 01/12/18 06:00 RBC 5.37 10^6/uL (3.5-6.1) 01/12/18 06:00 Hgb 14.4 g/dL (14.0-18.0) 01/12/18 06:00 Hct 45.9 % (42.0-52.0) 01/12/18 06:00 MCV 85.5 fl (80.0-105.0) 01/12/18 06:00 MCH 26.8 pg (25.0-35.0) 01/12/18 06:00 MCHC 31.4 g/dl (31.0-37.0) 01/12/18 06:00 RDW 20.5 % (11.5-14.5) H 01/12/18 06:00 Plt Count 244 10^3/uL (120.0-450.0) 01/12/18 06:00 MPV 9.3 fl (7.0-11.0) 01/12/18 06:00 Gran % 47.0 % (50.0-68.0) L 01/12/18 06:00 Lymph % (Auto) 37.7 % (22.0-35.0) H 01/12/18 06:00 [place] % (Auto) 10.5 % (1.0-6.0) H 01/12/18 06:00 Eos % (Auto) 4.5 % (1.5-5.0) 01/12/18 06:00 Baso % (Auto) 0.3 % (0.0-3.0) 01/12/18 06:00 Gran # 4.24 (1.4-6.5) 01/12/18 06:00 Lymph # (Auto) 3.4 (1.2-3.4) 01/12/18 06:00 [place] # (Auto) 1.0 (0.1-0.6) H 01/12/18 06:00 Eos # (Auto) 0.4 (0.0-0.7) 01/12/18 06:00 Baso # (Auto) 0.03 K/mm3 (0.0-2.0) 01/12/18 06:00 PT 17.0 SECONDS (9.4-12.5) H 01/09/18 06:00 INR 1.47 (0.93-1.08) H 01/09/18 06:00 APTT 36.7 Seconds (25.1-36.5) H 01/09/18 06:00 Sodium 140 mmol/L (132-148) 01/12/18 06:00 Potassium 4.0 mmol/L (3.6-5.0) 01/12/18 06:00 Chloride 99 mmol/L (98-107) 01/12/18 06:00 Carbon Dioxide 28 mmol/L (21-33) 01/12/18 06:00 Anion Gap 16 (10-20) 01/12/18 06:00 BUN 26 mg/dL (7-21) H 01/12/18 06:00 Creatinine 1.2 mg/dl (0.8-1.5) 01/12/18 06:00 Est GFR ( Amer) > 60 01/12/18 06:00 Est GFR (Non-Af Amer) > 60 01/12/18 06:00 Random Glucose 87 mg/dL (70-110) 01/12/18 06:00 Hemoglobin A1c 6.7 % (4.2-6.5) H 01/08/18 08:30 Calcium 9.1 mg/dL (8.4-10.5) 01/12/18 06:00 Phosphorus 4.1 mg/dL (2.5-4.5) 01/08/18 14:15 Magnesium 2.3 mg/dL (1.7-2.2) H 01/08/18 14:15 Total Bilirubin 2.1 mg/dL (0.2-1.3) H 01/12/18 06:00 Direct Bilirubin 1.8 mg/dL (0.0-0.4) H 01/08/18 14:15 AST 40 U/L (17-59) 01/12/18 06:00 ALT 61 U/L (7-56) H 01/12/18 06:00 Alkaline Phosphatase 156 U/L (38-126) H D 01/12/18 06:00 Lactate Dehydrogenase 820 U/L (333-699) H 01/08/18 08:44 Total Creatine Kinase 134 U/L (35-230) 01/08/18 08:44 Troponin I 0.02 ng/mL D 01/10/18 01:50 NT-Pro-B Natriuret Pep 4080 pg/mL (0-450) H 01/08/18 08:44 Total Protein 7.5 g/dL (5.8-8.3) 01/12/18 06:00 Albumin 3.8 g/dL (3.0-4.8) 01/12/18 06:00 Globulin 3.7 gm/dL 01/12/18 06:00 Albumin/Globulin Ratio 1.0 (1.1-1.8) L 01/12/18 06:00 Triglycerides 85 mg/dL (35-160) 01/09/18 06:00 Cholesterol 104 mg/dL (130-200) L 01/09/18 06:00 LDL Cholesterol Direct 70 mg/dL (0-129) 01/09/18 06:00 HDL Cholesterol 15 mg/dL (29-60) L 01/09/18 06:00 TSH 3rd Generation 2.63 mIU/mL (0.46-4.68) 01/08/18 08:30 Urine Color Yellow (YELLOW) 01/08/18 17:03 Urine Appearance Clear (CLEAR) 01/08/18 17:03 Urine pH 6.5 (4.7-8.0) 01/08/18 17:03 Ur Specific [place] <= 1.005 (1.005-1.035) 01/08/18 17:03 Urine Protein Negative mg/dL (<30 mg/dL) 01/08/18 17:03 Urine Glucose (UA) Negative mg/dL (NEGATIVE) 01/08/18 17:03 Urine Ketones Negative mg/dL (NEGATIVE) 01/08/18 17:03 Urine Blood Negative (NEGATIVE) 01/08/18 17:03 Urine Nitrate Negative (NEGATIVE) 01/08/18 17:03 Urine Bilirubin Negative (NEGATIVE) 01/08/18 17:03 Urine Urobilinogen >=8.0 E.U./dL (<1 E.U./dL) 01/08/18 17:03 Ur Leukocyte Esterase Negative Chava/uL (NEGATIVE) 01/08/18 17:03 Urine Osmolality 327 mosm/kg (300-1000) 01/08/18 17:03 Ur Random Creatinine 28 mg/dL 01/08/18 17:03 Ur Random Sodium 54 meq/L 01/08/18 17:03 Ur Random Urea Nitrogn 451 mg/dL 01/08/18 17:03 Hepatitis A IgM Ab Negative (NEGATIVE) 01/08/18 20:05 Hep Bs Antigen Negative (NEGATIVE) 01/08/18 20:05 Hep B Core IgM Ab Negative (NEGATIVE) 01/08/18 20:05 Hepatitis C Antibody Negative (NEGATIVE) 01/08/18 20:05 Attending/Attestation - Attestation I have personally seen and examined this patient.: Yes I have fully participated in the care of the patient.: Yes I have reviewed all pertinent clinical information, including history, physical exam and plan: Yes Notes (Text): 01/12/18 62 year old male with past medical history of cardiomyopathy, systolic CHF, s/p AICD, s/p stent, hypertension and dyslipidemia and history of noncompliance who presented with complaint of chest pain and shortness of breath secondary to acute on chronic CHF exacerbation. Serial cardiac enzymes were negative and ACS was ruled out. He was on iv lasix now switched to po. He was briefly hypotensive requiring levophed which is now tapered off. He had LAURIE which resolved and elevated LFTs which mproved. He was on aspirin, plavix, coreg, cozaar and lasix. His statin was held. Spironalactone resumed as per cardiology. Overall patient's symptoms improved. Patient is discharged home to follow up at [facility] next week. Follow up with membership advisor. Monitor LFTs as outpatient. Joselin Morales MD Hospitalist.
--- NOTE | 2018-01-12 18:52 | PN ---
Copied To: Mookie Seals MD Attending MD: Mookie Seals MD DATE: 01/12/2018 CARDIOLOGY FOLLOWUP SUBJECTIVE: The patient's breathing is improved. PHYSICAL EXAMINATION: VITAL SIGNS: Blood pressure is 108/83. The heart rate is in the 90s, normal sinus rhythm. NECK: Negative JVD. LUNGS: Clear to auscultation. HEART: Reveals a 2/6 systolic ejection murmur. EXTREMITIES: Without edema. LABORATORY DATA: Hemoglobin is 14.4. Chemistries: BUN and creatinine are 26 and 1.2, potassium is 4. IMPRESSION: 1. Ischemic dilated cardiomyopathy. 2. Aortic stenosis. 3. Dilated cardiomyopathy. 4. Resolution of congestive heart failure. 5. Coronary artery disease. 6. Aortic stenosis. Given these findings, the patient's cardiac status is improved. He is scheduled for discharge today. He will follow up with his center manager in [place] in [facility]. Mookie Seals MD
== END 2018-01-12 18:39 | disposition home or self-care (01) | DRG 292 ==
LOC: ED 08:16 → ERH 11:03 → 2RNO 12:42 → CCU 01-10 01:54 → 2RNO 01-10 02:19 → CCU 01-10 03:36 → 2RNO 01-11 13:24
PROVIDERS: ADMIT Internal Medicine; ATTEND Internal Medicine
DX: I11.0 Hypertensive heart disease with heart failure (principal); N17.9 Acute kidney failure, unspecified; I50.23 Acute on chronic systolic (congestive) heart failure; I42.0 Dilated cardiomyopathy; I25.5 Ischemic cardiomyopathy; I35.0 Nonrheumatic aortic (valve) stenosis; I27.20 Pulmonary hypertension, unspecified; I25.10 Atherosclerotic heart disease of native coronary artery without angina pectoris; I95.9 Hypotension, unspecified; K76.1 Chronic passive congestion of liver; E78.00 Pure hypercholesterolemia, unspecified; E78.5 Hyperlipidemia, unspecified; I25.2 Old myocardial infarction; Z95.5 Presence of coronary angioplasty implant and graft; Z95.810 Presence of automatic (implantable) cardiac defibrillator; Z87.891 Personal history of nicotine dependence; Z79.02 Long term (current) use of antithrombotics/antiplatelets; Z79.82 Long term (current) use of aspirin; Z91.19 Patient's noncompliance with other medical treatment and regimen